=== PATIENT | female | born 1985 | race Caucasian/White ===

== ENCOUNTER 2020-06-30 09:31 | Outpatient (CLI) | payer OTHER, SELFPAY ==
--- NOTE | ~2020-06-30 | MR_ITS ---
EXAMINATION: MR pituitary wo/w con DATE: 06/30/2020 10:54 INDICATION: Hyperprolactinemia. TECHNIQUE: Magnetic resonance imaging (MRI) of the brain and brainstem was performed without and with 20 mL MultiHance intravenous contrast. Whole-brain sequences included sagittal T1-weighted FSE, axia l diffusion-weighted FS EPI, axial T2*-weighted GRE, axial T2-weighted FLAIR Propeller, and axial T2- weighted Propeller. Small tweqy-hl-xeya sequences included sagittal and coronal T1-weighted FSE cente red at the pituitary. Postcontrast sequences included small rxekz-st-tfug coronal T1-weighted FSE in a time course and sagittal T1-weighted FSE and whole-brain axial T1-weighted FSE. Apparent diffusion coefficient (ADC) maps were created. COMPARISON: None. FINDINGS: The pituitary is normal in size with height of 5 mm and concave superior margin. The infund ibulum is at midline. There is no intracranial hemorrhage, acute infarction, or abnormal intracranial mass lesion. There is a trace left mastoid effusion. The paranasal sinuses are clear. The orbits are normal. IMPRESSION: 1. Normal brain. Normal pituitary. Reviewed, dictated and finalized at location B. T FOREMAN
[2020-06-30 10:16] LABS: Estimated Glomerular Filt Rate > 60
== END 2020-06-30 09:32 | disposition home or self-care (01) ==
PROVIDERS: Visit Provider Nurse Practitioner Obstetrics & Gynecology
DX: E22.1 Hyperprolactinemia (principal)
CPT/HCPCS: 70553; A9577

== ENCOUNTER 2020-09-22 13:45 | Outpatient (CLI) | payer OTHER, SELFPAY ==
--- NOTE | ~2020-09-22 | US_ITS ---
EXAMINATION: US thyroid DATE: 09/22/2020 14:13 INDICATION: Nontoxic goiter. TECHNIQUE: Multiple ultrasound images of the thyroid were obtained. COMPARISON: None. FINDINGS: The right thyroid lobe measures 5.5 x 1.6 x 1.6 cm. The left thyroid lobe measures 5.0 x 2.0 x 1.5 c m. There is normal echotexture and echogenicity throughout the thyroid gland. No discrete nodules id entified. Normal vascular flow is present. IMPRESSION: 1. Normal thyroid. Reviewed, dictated and finalized at location A. LING ATTENDANT IMPRESSION: 1. Normal thyroid.
== END 2020-09-22 13:46 | disposition home or self-care (01) ==
PROVIDERS: Visit Provider Internal Medicine Endocrinology, Diabetes & Metabolism
DX: E04.9 Nontoxic goiter, unspecified (principal)
CPT/HCPCS: 76536

== ENCOUNTER 2020-11-30 10:03 | Emergency (ER) | payer OTHER, SELFPAY ==
[2020-11-30 10:14] VITALS: BP 134/83; PULSE 84; RESP 16; TEMP 36.5; O2SAT 98
--- NOTE | 2020-11-30 10:20 | PC.NURSE ---
in br to obtain ua spec.
--- NOTE | 2020-11-30 10:37 | ED.FEMALEGU ---
HPI - Female Genitourinary General Chief complaint: Urogenital-Female Stated complaint: UTI Time Seen by Provider: 11/30/20 10:37 Source: patient and RN notes reviewed Mode of arrival: ambulatory Limitations: no limitations History of Present Illness HPI Narrative: 35-year-old female presents with concern for possible urinary tract infection. She reports trouble holding urine, overnight incontinence, suprapubic cramping. Reports the last several days she has had nausea, vomiting, general body aches. She denies hematuria, flank pain. Denies upper respiratory symptoms such as cough or shortness of breath. She denies intervention. Denies abnormal vaginal discharge or bleeding. MD elicited complaint: UTI Related Data Home Medications Medication Instructions Recorded Confirmed cariprazine [Vraylar] mg 11/30/20 levothyroxine 11/30/20 lithium carbonate mg 11/30/20 metformin mg PO 11/30/20 pravastatin 11/30/20 sertraline mg 11/30/20 spironolactone 11/30/20 Allergies Allergy/AdvReac Type Severity Reaction Status Date / Time No Known Allergies Allergy Verified 11/30/20 10:11 Review of Systems Review of Systems: Narrative: CONSTITUTIONAL: Denies malaise, chills, sweats, or fever. ENT: Denies rhinorrhea, congestion, sinus pain, otalgia or sore throat. CARDIOVASCULAR: Denies chest pain, palpitations, or edema. RESPIRATORY: Denies cough or dyspnea. GASTROINTESTINAL: Denies abdominal pain, diarrhea. Reports nausea, vomiting, GENITOURINARY: Reports dysuria incontinence, urgency, suprapubic crampy. Denies hematuria, abnormal vaginal discharge or bleeding SKIN: Denies vaginal rash or itching. MUSCULOSKELETAL: Denies back pain. Reports myalgia. NEUROLOGIC: Denies headache. All systems reviewed & are unremarkable except as noted in HPI and below PMFSH Comments At time of signature, agree with nursing past medical, surgical, social and family history. There is no relevant family history pertinent to the presenting complaint Exam Narrative: Exam Narrative: GENERAL: Well-appearing, well-nourished, and in no acute distress. HEAD: Normocephalic. EYES: PERRLA, conjunctivae clear. NECK: Supple. No lymphadenopathy CHEST: Clear to auscultation. No respiratory distress. HEART: Regular rate and rhythm. ABDOMEN: Soft, mild right lower quadrant tenderness upon palpation, nondistended, normal active bowel sounds, no palpable or pulsatile masses, no guarding. No CVA tenderness SKIN: Warm, dry, no rash. NEURO: Alert and oriented x3. PSYCH: Normal mood and affect Course Course Emergency Course: Patient is aware of diagnosis, understands and agrees to treatment plan. Anticipatory guidance given. Patient agrees to follow-up as directed and is aware of reasons to seek care at the emergency department. Portions of this record may have been created with voice recognition software Vital Signs Vital signs: Vital Signs Temperature 97.7 F 11/30/20 10:14 Pulse Rate 84 11/30/20 10:14 Respiratory Rate 16 11/30/20 10:14 Blood Pressure 134/83 11/30/20 10:14 Pulse Oximetry 98 11/30/20 10:14 Temperature 97.7 F 11/30/20 10:14 Pulse Rate 84 11/30/20 10:14 Respiratory Rate 16 11/30/20 10:14 Blood Pressure 134/83 11/30/20 10:14 Pulse Oximetry 98 11/30/20 10:14 Reviewed. MDM - Female Genitourinary MDM Narrative Medical decision making narrative: Exam findings and UA show no acute concerns or changes; patient is non-toxic appearing and is in no distress. Patient is appropriate for outpatient treatment and follow-up. Differential Diagnosis Differential diagnosis: Likely urinary tract infection, cystitis and other (Pyelonephritis) Lab Data Labs: Urine Glucose Negative Reference Range: Negative Urine Bilirubin Negative Reference Range: Negative Urine Ketone
== END 2020-11-30 10:50 | disposition home or self-care (01) ==
PROVIDERS: Emergency Provider Nurse Practitioner
DX: N39.0 Urinary tract infection, site not specified (principal); E78.00 Pure hypercholesterolemia, unspecified; Z98.84 Bariatric surgery status; E03.9 Hypothyroidism, unspecified; E28.2 Polycystic ovarian syndrome
CPT/HCPCS: 81003; 87077; 87086; 87088; 87186; 99213; G0463

== ENCOUNTER 2021-11-28 10:36 | Outpatient (CLI) | payer OTHER, SELFPAY ==
--- NOTE | 2021-11-28 | ECG_ITS ---
Measurements Intervals [place] Rate: 84 P: 50 MO: 152 QRS: -1 QRSD: 104 T: 23 QT: 384 QTc: 455 Interpretive Statements SINUS RHYTHM DELAYED PRECORDIAL R/S TRANSITION BORDERLINE T WAVE ABNORMALITY- ANT/INF LEADS BASELINE WANDER- V1, V4 BORDERLINE ECG Electronically Signed On 11-28-2021 12:57:33 CDT by Chinedu Velazquez D.O.
--- NOTE | 2021-11-28 13:45 | WPDPFTINT ---
PFT Procedure Performed PFT Procedure Performed Plethysmography (Lung Vol) Diffusing Cap (DLCO) Flow Vol Loop Spirometry w/o Bronchodil PFT Interpretation This is a pulmonary function test with spirometry, plethysmography and diffusing capacity. The test was performed and results interpreted in accordance with the 2019 and 2005 ATS/ERS Task Force guidelines respectively using the Global Lung Function Initiative-2012 reference equations. Patient demonstrated good effort and cooperation. Reproducibility criteria were met. The quality of the spirometry maneuver was Grade A. Findings: Spirometry: The contour the inspiratory and expiratory flow tracing are normal. The FVC is 3.45 L, 92% predicted. The FEV1 is 2.70 L, 88% predicted. The FEV1: FVC ratio 78%. Plethysmography: The total lung capacity is 4.80 L, 94% predicted. The functional residual capacity is 1.75 L, 62% predicted. The residual volume is 1.35 L, 87% predicted. Diffusing capacity: The diffusing capacity unadjusted for hemoglobin and carboxyhemoglobin is 22.6, 94% predicted. The diffusion capacity adjusted for alveolar volume is 5.02 L, 105% predicted. Impression: The spirometry is normal without evidence of an obstructive abnormality. The lung volumes are normal. The diffusing capacity is normal. There are no prior studies for comparison
== END 2021-11-28 10:37 | disposition home or self-care (01) ==
PROVIDERS: Referring Provider Internal Medicine; Visit Provider Nurse Practitioner Adult Health
DX: R06.00 Dyspnea, unspecified (principal)
CPT/HCPCS: 93005; 94375; 94726; 94729

== ENCOUNTER 2021-11-29 14:16 | Outpatient (CLI) | payer OTHER, SELFPAY ==
--- NOTE | ~2021-11-29 | XR_ITS ---
XR chest 2V DATE: 11/29/2021 14:50 INDICATION: Dyspnea on exertion. Preoperative evaluation for bariatric surgery TECHNIQUE: PA and lateral views COMPARISON: None FINDINGS: Normal heart size. No hilar or mediastinal enlargement. No pulmonary infiltrate or consolid ation, pleural effusion or pulmonary vascular congestion or pneumothorax. IMPRESSION: No active cardiopulmonary disease Reviewed, dictated and finalized at location B.
== END 2021-11-29 14:17 | disposition home or self-care (01) ==
LOC: ANHIMG 14:18
PROVIDERS: PCP Internal Medicine; Visit Provider Internal Medicine
DX: R06.00 Dyspnea, unspecified (principal)
CPT/HCPCS: 71046

== ENCOUNTER 2023-09-21 13:29 | Outpatient (CLI) | payer BC, SELFPAY ==
--- NOTE | 2023-09-21 13:36 | ECG_ITS ---
Measurements Intervals [place] Rate: 66 P: 38 NH: 193 QRS: -4 QRSD: 102 T: 15 QT: 404 QTc: 424 Interpretive Statements SINUS RHYTHM DELAYED PRECORDIAL R/S TRANSITION LOW QRS VOLTAGE IN PRECORDIAL LEADS BORDERLINE T WAVE ABNORMALITY- ANT/INF LEADS BASELINE ARTIFACT- I, II, AVR BORDERLINE ECG COMPARED TO ECG 11/28/2021 12:02:39 NO SIGNIFICANT CHANGES Electronically Signed On 09-21-2023 13:59:36 PROGRESSIVE CARE NURSE by Chinedu Velazquez D.O.
[2023-09-21 13:58] LABS: Hematocrit 42.3 % (37.0-47.0); Hemoglobin 13.7 g/dL (12.0-15.0)
[2023-09-21 14:22] LABS: Anion Gap 6 mmol/L (8-16); Blood Urea Nitrogen 16 mg/dL (7-17); Calcium 9.7 mg/dL (8.4-10.2); Carbon Dioxide 27 mmol/L (22-30); Chloride 104 mmol/L (98-107); Estimated Glomerular Filt Rate > 60; Glucose 94 mg/dL (65-110); Potassium 4.2 mmol/L (3.4-5.0); Sodium 137 mmol/L (137-145)
== END 2023-09-21 13:30 | disposition home or self-care (01) ==
LOC: ANHSURGERY 13:32
PROVIDERS: Anesthesiology; PCP Internal Medicine; Visit Provider Obstetrics & Gynecology
DX: Z01.818 Encounter for other preprocedural examination (principal); D64.9 Anemia, unspecified; Z79.899 Other long term (current) drug therapy; E78.00 Pure hypercholesterolemia, unspecified; E11.9 Type 2 diabetes mellitus without complications
CPT/HCPCS: 36415; 80048; 80178; 85014; 85018; 93005

== ENCOUNTER 2023-09-26 00:53 | Day surgery (SDC) | payer BC, SELFPAY ==
--- NOTE | 2023-09-20 17:58 | PC.NURSE ---
Report to the Outpatient Waiting Room, entrance under the green pavilion located off [facility], at time 0600 on date 09/26/23. Planned Procedure Time: 0730. Time changes happen often and if your time is changed the preop area will call you the afternoon before. - You and your visitor will be asked to self-screen and do not enter if you have any COVID symptoms. - A mask is optional within the hospital at this time. Patients may have clear liquids (water, carbonated beverages, clear teas, apple juice) until 3 hours prior to surgery with a maximum of 20 ounces. 0430 - No food from midnight until time of surgery - Infants may have breast milk until 4 hours before surgery, formula 6 hours prior to surgery. - Children will be allowed to drink immediately following surgery. If applicable, please bring a bottle or sippy cup to assist with drinking. Juice, water, soda, and popsicles are readily available. For infants on formula, please bring formula the day of surgery. Pacifiers are allowed. Take the following medications with a SIP of water the morning of surgery: LITHIUM, LEVOTHYROXINE, CONTROL DO NOT STOP ANY OF YOUR OTHER PRESCRIPTION MEDICATIONS PRIOR TO SURGERY ?EXCEPT THE FOLLOWING Medications to discontinue per physician VITAMIN AND SUPPLEMENTS (09/23/23 LAST DOSE) Please no make-up, nail [place], hairspray, perfume, deodorant, or body powder the day of surgery. No jewelry (including any body piercings) or valuables the day of surgery, leave them at home. Please take a shower or bath the night before, or the morning of, surgery with an antibacterial soap. Wear comfortable, loose fitting clothing. Children are encouraged to wear pajamas. - Jewelry must be removed prior to entering the operating room. Rings and piercings that are not removed may be cut off. - The hospital will not accept responsibility for valuables. - Please leave all valuables, including medications, at home the day of surgery. If you are going home after surgery, a licensed diesel truck driver must drive you home. - NO public transportation without another adult if you receive anesthesia. - We recommend that an adult stay with you for 24 hours following discharge. - We also recommend that you do not drive, make important decision, drink alcoholic beverages, or take any drugs that were not prescribed by your health care provider for at least 24 hours after your discharge time. For Pediatric surgeries, we recommend two adults accompany the child home. Follow any additional instructions given to you from your surgeon. If you or anyone in your household have experienced Covid symptoms in the past week, please notify your surgeon or the nurse liaison at the phone number below for possible testing. Telephone instructions given to Patient- Juana Rodriguez and asked if any additional questions and then verbalized understanding. Patient advised to call surgeon office or pre surgery nurse liaison [phone] if any additional questions.
[2023-09-20 18:06] VITALS: BMI 41.0
--- NOTE | 2023-09-25 14:13 | P.PNAN_ITS ---
Anes - Initial Pre Proc Eval Procedure: Operation Date: 09/26/23 07:30 Proposed Procedures p Diagnostic Laparoscopy - Maryam Guerrero MD Date/Time: 09/25/23 14:13 Surgeon: Maryam Guerrero MD Pre Op Diagnosis: pelvic mass Patient Data Age: 38 Gender: F Height: 1.64 m Weight: 110.9 kg Allergies Allergy/AdvReac Type Severity Reaction Status Date / Time No Known Allergies Allergy Verified 09/20/23 17:37 Home Medications Medication Instructions Recorded Confirmed Type cariprazine 3 mg capsule (Vraylar) 6 mg PO QPM 11/30/20 09/20/23 History levothyroxine 75 mcg tablet 125 mcg PO DAILY 11/30/20 09/20/23 History lithium carbonate 600 mg capsule 600 mg PO BID 11/30/20 09/20/23 History metformin 500 mg tablet,extended 500 mg PO HS 11/30/20 09/20/23 History release 24 hr pravastatin 20 mg tablet 20 mg PO DAILY 11/30/20 09/20/23 History Adults Multivitamin 1 tab-cap PO HS 09/20/23 09/20/23 History Allergy Relief (loratadine) 1 tab-cap PO DAILY 09/20/23 09/20/23 History atomoxetine 25 mg capsule 60 mg PO DAILY 09/20/23 09/20/23 History calcium citrate 1 tab-cap PO BID 09/20/23 09/20/23 History drospirenone 3 mg-estetrol 14.2 mg 1 tablet PO DAILY 09/20/23 09/20/23 History (28) tablet (Nextstellis) ferrous sulfate 325 mg (65 mg 325 mg PO QPM 09/20/23 09/20/23 History iron) tablet lithium carbonate 300 mg capsule 300 mg PO HS 09/20/23 09/20/23 History Patient hx anesthesia problems: none Family hx anesthesia problems: none Results Review: All pre-operative results and documents have been reviewed as part of the pre- operative evaluation. [facility] Past Medical History Medical History (Updated 09/25/23 @ 14:14 by Robson Newton DO) Anxiety Asthma Bipolar disorder Hyperlipidemia Hypothyroidism PTSD (post-traumatic stress disorder) Surgical History Surgical History (Updated 09/25/23 @ 14:14 by Robson Newton DO) History of History of cholecystectomy History of gastric bypass History of tubal ligation Social History Social History Smoking packs per day: 1 Smoking cigarettes per day: 20.0 Years smoked: 20 Smoking pack-years: 20.00 Smoking status: Former smoker Tobacco type: cigarettes Substance use type: marijuana Other substance usage details: daily in the evenings Spiritual care concerns: No Anes - Eval Final PreProcedure Day of Procedure 09/25/23 14:13 Patient weight: morbidly obese Heart: regular rate and rhythm Lungs: clear to auscultation Airway: Mallampati scale class II Neurological: alert and oriented Last oral intake: >/= 8 hours ASA classification: III Emergent: no Anesthetic plan: proceed Anesthesia type and monitoring: general ETT and standard monitoring Results Review: All pre-operative results and documents have been reviewed as part of the pre- operative evaluation. Informed Consent: The patient's anesthetic plan and its attendant risks and benefits were discussed with the patient/family/POA. Questions were solicited and answers provided to the satisfaction of the patient/family/POA.
[2023-09-26] VITALS (12 sets, daily range): BP systolic 123–148; BP diastolic 59–83; PULSE 60–79; RESP 10–19; TEMP 36.3–36.7; O2SAT 92–100; BMI 41.1
[2023-09-26 06:27] LABS: Glucose Point of Care 106 mg/dl (65-105)
[2023-09-26] MEDS: KETOROLAC 15 MG/ML VIAL (*BKC) IV PUSH (06:46)
[2023-09-26] MEDS: ACETAMINOPHEN 500 MG TABLET 1000 MG PO (06:46)
[2023-09-26] MEDS: LACTATED RINGERS 1,000 ML 30 ML IV CONT ×2 (06:48→09:30)
[2023-09-26] MEDS: SCOPOLAMINE 1 MG PATCH 1 PATCH TRANSDERM (06:57)
--- NOTE | 2023-09-26 07:26 | WPDHPUPDATE1 ---
History and Physical Update Update Date/Time: 09/26/23 07:26 History and Physical has been reviewed, including an updated exam of the patient. There are NO changes in the patient's condition. Risks, benefits, and alternatives have been discussed and questions answered. Patient agrees to proceed with procedure.
--- NOTE | 2023-09-26 08:45 | W.PM.PROC2 ---
Procedure Note - Detailed Date of Procedure 09/26/23 Pre-op Diagnosis pelvic mass Post-op Diagnosis Other ( paratubal cyst torsion) Procedure Performed resection of paratubal cyst Surgeon Maryam Guerrero MD Anesthesia General Indications Pelvic pain Findings paratubal cyst torsion, adhesions between omentum and anterior abdominal, adhesions between uterus and anterior pelvis, normal-appearing tubes and ovaries, status post tubal ligation. Description of Procedure The patient was taken to the operating room. She was prepped and draped in the dorsal lithotomy position after induction general anesthesia. A 5 mm incision was made with a scalpel on the abdominal skin in the left upper quadrant of the abdomen. A 5 mm trocar was inserted into the intra-abdominal cavity under direct visualization the scope. In the same fashion a 11 mm left lower quadrant trocar was inserted and a 5 mm infraumbilical trocar was inserted. Paratubal cyst torsion was resected. The stalk was cauterized transected. The paratubal cyst was placed in a bag and taken out the left lower quadrant trocar site. The pelvis was irrigated. The pneumoperitoneum was reduced. The trocars were removed. Skin was closed with subcuticular 4 micro. The patient's incisions were covered with Dermabond. She was taken recovery room in stable condition. Sponge lap and needle counts were correct x2. Pathology Yes Complications No immediate complications Condition Stable Disposition Same day
[2023-09-26 08:47] LABS: Glucose Point of Care 93 mg/dl (65-105)
[2023-09-26] MEDS: ONDANSETRON INJ 4 MG/2 ML VIAL IV PUSH (09:22)
[2023-09-26] MEDS: diphenhydrAMINE HCl INJ 50 MG/ML VIAL 25 MG IV PUSH ×2 (09:35→09:51)
[2023-09-26] MEDS: fentaNYL CITRATE INJ (*CRX) 100 MCG/2 ML VIAL 25 MCG IV PUSH (09:56)
[2023-09-26] MEDS: oxyCODONE HCL (*CRX) 5 MG TAB IR PO (10:30)
== END 2023-09-26 10:55 | disposition home or self-care (01) ==
PROVIDERS: PCP Internal Medicine; Visit Provider Obstetrics & Gynecology
PROC: (CPT 49320; principal; 2023-09-26 07:30)
DX: N83.8 Other noninflammatory disorders of ovary, fallopian tube and broad ligament (principal); E78.5 Hyperlipidemia, unspecified; E03.9 Hypothyroidism, unspecified; F31.9 Bipolar disorder, unspecified; F41.9 Anxiety disorder, unspecified; F43.10 Post-traumatic stress disorder, unspecified; Z98.84 Bariatric surgery status; Z87.891 Personal history of nicotine dependence; F12.90 Cannabis use, unspecified, uncomplicated; E66.01 Morbid (severe) obesity due to excess calories; Z68.41 Body mass index [BMI] 40.0-44.9, adult; Z79.84 Long term (current) use of oral hypoglycemic drugs
CPT/HCPCS: 58662; 82948; 88305; A9270; J1100; J1170; J1200; J1885; J2250; J2405; J2704; J3010; J7030; J7120

== ENCOUNTER 2025-03-20 09:09 | Emergency (ER) | payer BC, SELFPAY ==
--- NOTE | ~2025-03-20 | CT_ITS ---
EXAMINATION: CT elbow RT wo con DATE: 03/20/2025 12:55 INDICATION: Right elbow fracture dislocation TECHNIQUE: High resolution computed tomography (CT) of the right elbow was performed without intravenous contrast. Additional sagittal and coronal reconstructions were performed. Automated exposure control and iterative reconstruction technique were employed. The dose-length product was 373.99 mGy-cm. COMPARISON: Radiographs dated 03/20/2025 FINDINGS: Comminuted intra-articular fracture at the proximal head of the right radius. There is volar impaction with approximately 25 degree anterior angulation of the more distal radius relative to the radial head fragments. There is a nondisplaced fracture line extending to the proximal articular surface. A c rescentic fragment comprising approximately one third of the articular surface of the radial head is displaced 3 cm distally. There are a few additional tiny fracture fragments scattered throughout the recess of the elbow joint space. The previously posteriorly dislocated and subsequently reduced ulnotrochlear articulation remains in normal alignment. No evident fracture of the distal humerus and proximal ulna. Persistent extensive edema surrounding the elbow. There are few tiny foci of gas along the medial aspect of the elbow and proximal forearm which suggests a possible skin laceration and potential for an open/compound fracture. Alternatively this could represent residual vacuum phenomena occurring at the time of trauma. IMPRESSION: 1. Comminuted intra-articular fracture of the right radial head with 3 cm distal displacement of a fragment comprising approximately one third of the articular surface area. Although there is volar impaction with 25 degrees angulation of the nondisplaced radial head fragments, the articular surface of the radial head is now appropriately centered over the articular surface of the capitellum. Reviewed, dictated and finalized at location A. IMPRESSION: 1. Comminuted intra-articular fracture of the right radial head with 3 cm dista l displacement of a fragment comprising approximately one third of the articula r surface area. Although there is volar impaction with 25 degrees angulation of the nondisplaced radial head fragments, the articular surface of the radial he ad is now appropriately centered over the articular surface of the capitellum.
--- NOTE | ~2025-03-20 | XR_ITS ---
EXAMINATION: XR elbow RT min 3V DATE: 03/20/2025 10:10 INDICATION: Postreduction. TECHNIQUE: 3 images of the right elbow were obtained. COMPARISON: Right elbow x-ray 03/20/2025 FINDINGS: Large joint effusion. Soft tissue swelling. Redemonstration of the avulsion fractures about the right elbow. Minimally displaced fracture of the radial neck. Improved alignment of the supracondylar humerus. However, the supracondylar humerus is not in anatomic alignment IMPRESSION: 1.Improved alignment of the supracondylar humerus. However, the supracondylar humerus is not in anatomic alignment 2.Redemonstration of the avulsion fractures about the right elbow. 3.Minimally displaced fracture of the radial neck. Reviewed, dictated and finalized at location Q. IMPRESSION: 1.Improved alignment of the supracondylar humerus. However, the supracondylar h umerus is not in anatomic alignment 2.Redemonstration of the avulsion fractures about the right elbow. 3.Minimally displaced fracture of the radial neck.
--- NOTE | ~2025-03-20 | XR_ITS ---
EXAMINATION: XR elbow RT min 3V, 03/20/2025 9:20 CDT HISTORY: fall down stairs, deformity COMPARISON: No comparisons available. Findings: The supracondylar humerus is dislocated anteriorly with avulsion fractures noted. Large joint effusion. Diffuse soft tissue swelling. Impression: Fracture dislocation detailed above Reviewed, dictated and finalized at location A. Impression: Fracture dislocation detailed above
[2025-03-20 09:09] VITALS: BP 134/66; PULSE 49; RESP 18; TEMP 37; O2SAT 100
[2025-03-20] MEDS: ONDANSETRON INJ 4 MG/2 ML VIAL IV PUSH (09:24)
[2025-03-20] MEDS: HYDROmorphone HCL INJ (*CRX) 1 MG/ML SYR 0.5 MG IV PUSH ×3 (09:24→13:47)
--- OUTSIDE RECORDS SUMMARY | 2025-03-20 09:38 | XMS_ITS | Encounter Summary ---
Author Organization [facility] Address [address] [place] [address] Phone Care Team Providers Care It Systems Analyst Name Role Phone Unknown, Notinfile Primary Care Provider Unavail able Rubio Burciaga MD Primary Care Provider [phone] Encounter Details Date Type Department Care Team (Latest Contact Info) Description 10/28/2021 Orders Only [facility] Scanning, Provider Social History Tobacco Use Types Packs/Day Years Used Date Smoking Tobacco: Former Cigarettes 1 15 AUDIT-C Answer Date Recorded Q1: How often do you have a drink containing alc ohol? 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 Gender Identity Female 01/25/2021 11:10 AM CDT Sexual Orientation Straight 01/25/2021 11 :10 AM CDT documented as of this encounter Plan of Treatment Not on file documented as of this encounter Procedures Procedure Name Priority Date/Time Associated Diagnosis Comments SCAN - LABS 10/28/2021 documented in this encounter Results * SCAN - LABS (10/28/2021) us Provider Scanning Final Result documented in this encounter Visit Diagnoses Not on filedocumented in this encounter Additional Health Concerns Infection Onset Date Last Indicated Resolved Time COVID: Suspected 06/16/2024 06/16/2024 06/16/2024 8:32 AM GRANITE WORKER documented as of this encounter Care Teams It Systems Analyst Relationship Specialty Start Date End Date Unknown, Notinfile PCP - General 07/21/20 11/15/21 Rubio Burciaga MD [address] [facility] [place] [address] PCP - General Internal Medicine 11/16/21 documented as of this encounter
--- OUTSIDE RECORDS SUMMARY | 2025-03-20 09:38 | XMS_ITS | Clinical Summary ---
Author Organization [facility] Address [address] [place] [id number] Care Team Providers Care Diving Board Assembler Name Role Phone Rubio Burciaga MD Primary Care Provider [phone] Allergies Active Allergy Reactions Criticality Noted Date Comments Escitalopram Anxiety High 03/13/2024 Metformin Diarrhea Low 08/13/2021 Abdominal pain, intolerance at higher doses. No issues with 500mg Medications pravastatin (PRAVACHOL) 20 mg tablet Take 1 tablet (20 mg total) by mouth instructor psychiatric aide before breakfast 1 Active levothyroxine (SYNTHROID) 125 mcg tablet Take 1 tablet (125 mcg total) by mouth every morning 2 Active melatonin 10 mg capsule Take 20 mg by mouth nightly Active vitamin D3/vitamin K2, MK4, (K2 PLUS D3 ORAL) Take by mouth nightly K2- 90mg and 125 d3 at hs Active UNABLE TO FIND Take 1 each by mouth nightly Med Name: magnesium l-threonate Active albuterol (PROAIR RESPICLICK) 90 mcg/actuation inhaler Inhale 2 puffs every 6 (six) hours as needed for wheezing Active loratadine (CLARITIN) 10 mg tablet Take 1 tablet (10 mg total) by mouth instructor psychiatric aide before breakfast Active multivit lkvgitdy-jbpx-S A-calcium (THERA-M) 9 mg iron-400 mcg tabletIndicatio ns:Vitamin Deficiency Prevention Take 1 tablet by mouth 2 (two) times a day 30 tablet 11 3 Active drospirenone-es tetrol (Nextstellis) 3 mg- 14.2 mg (28) tablet Take by mouth daily Active QUEtiapine (SEROquel) 25 mg tablet Take 1 tablet (25 mg total) by mouth nightly 5 Active metFORMIN XR (GLUCOPHAGE XR) 500 mg 24 hr tablet Take 1 tablet (500 mg total) by mouth daily with dinner 5 Active venlafaxine XR (EFFEXOR-XR) 150 mg 24 hr capsule Take 1 capsule (150 mg total) by mouth daily 5 Active ARIPiprazole (ABILIFY MAINTENA) 400 mg IM injection Inject 400 mg into the muscle as instructed every 30 (thirty) days 5 Active clonazePAM (KlonoPIN) 0.5 mg tablet Take 1 tablet (0.5 mg total) by mouth 2 (two) times a day as needed 5 Active dexmethylphenid ate (FOCALIN) 5 mg tablet Take 1 tablet (5 mg total) by mouth 2 (two) times a day 5 Active lamoTRIgine (LaMICtal) 100 mg tablet Take 1 tablet (100 mg total) by mouth daily 5 Active ascorbic acid-vitamin E-biotin 7.5-7.5-1,250 mg-unit-mcg tablet,chewable Take by mouth daily Active vit 46-rytn-titpe-d quiñones 27mg iron- 800 mcg-250 mg capsule Take by mouth daily Active Active Problems Problem Noted Date Diagnosed Date Work-related stress 04/29/2024 Assessment & Plan (04/29/2024 11:10 AM CDT): Acute, persistent, worry about returning to work. Discussed at length patient today. Plan in place for with therapist tomorrow. Supportive counseling provided. Continue to monitor. Other insomnia 04/29/2024 Assessment & Plan (04/29/2024 11:11 AM CDT): Acute on chronic, persistent symptoms. Focus on sleep hygiene. Improving sleep hygiene is estrada to promoting better quality sleep. A few tips are noted below: Stick to a consistent sleep schedule by going to bed and waking up at the same time every day, even on weekends. Create a relaxing bedtime routine to signal to your body that it's time to wind down. Make sure the sleep environment is conducive to rest - keep the room dark, quiet, and at a comfortable temperature. Avoid stimulants like caffeine, nicotine, and electronics close to bedtime. Get regular exercise during the day, but avoid vigorous exercise close to bedtime. Limit exposure to screens and bright lights in the evening, as they can interfere with your body's natural sleep-wake cycle. Avoid heavy meals, alcohol, and large amounts of liquids before bedtime. Practice relaxation techniques like deep breathing, meditation, or gentle stretching to calm the mind and body before sleep. Changes to management noted as follows: Increase trazodone as discussed today. Monitor at interval. Morbid (severe) obesity due to excess calories 0 08/10/2022 Attention and concentration deficit 08/10/2022 Autoimmune thyroiditis 08/10/2022 Major depressive disorder 08/10/2022 Midline cystocele 08/10/2022 Pre-operative cardiovascular examination 022 Hypercalcemia 11/28/2021 Prediabetes 08/30/2021 Assessment & Plan (06/30/2022 1:07 PM MANAGER FACILITY): Reviewed most recent labs available. Continue low-carb (<150 g/day), low- glycemic diet. Continue dulaglutide -- consider increasing pending timing of surgery.. Discussed that this will be stopped, at least temporarily, at the time of surgery. Assessment & Plan (03/09/2022 1:24 PM CDT): Upcoming appt and labs with endocrine. Continue low-carb (<150 g/day), low- glycemic diet. Continue metformin. Recommend maximizing dulaglutide. Mixed hyperlipidemia 08/30/2021 Metabolic and nutritional disorder 07/06/2021 Overview (08/13/2021): Semaglutide denied by insurance; did not tolerate metformin Assessment & Plan (09/06/2021 5:22 PM MANAGER FACILITY): Continue low-carb (<150 g/day), low-glycemic diet. Continue metformin as tolerated. Assessment & Plan (08/13/2021 6:51 PM MANAGER FACILITY): Continue low-carb (<150 g/day), low-glycemic diet. Assessment & Plan (07/06/2021 10:54 PM MANAGER FACILITY): Continue low-carb (<150 g/day), low-glycemic diet. Continue metformin. Assessment & Plan (07/06/2021 10:45 PM MANAGER FACILITY): Continue low-carb (<150 g/day), low-glycemic diet. Titrate up on metformin. Encounter for weight management 02/01/2021 Assessment & Plan (06/30/2022 1:05 PM MANAGER FACILITY): Reviewed calorie restriction based on BMR as previously detailed. Reviewed recommendation/goal of >/= 150 minutes/week moderate-intensity aerobic exercise. Asked to keep detailed food diary for at least 1 week and bring to next visit and/or continue tracking on phone. Assessment & Plan (03/09/2022 1:19 PM CDT): Reviewed calorie restriction based on BMR as previously detailed. Reviewed recommendation/goal of >/= 150 minutes/week moderate-intensity aerobic exercise. Asked to keep detailed food diary for at least 1 week and bring to next visit and/or continue tracking on phone. Assessment & Plan (09/06/2021 5:22 PM MANAGER FACILITY): Reviewed calorie restriction based on BMR as previously detailed. Reviewed recommendation/goal of >/= 150 minutes/week moderate-intensity aerobic exercise. Assessment & Plan (08/13/2021 6:46 PM MANAGER FACILITY): Reviewed calorie restriction based on BMR as previously detailed. Reviewed recommendation/goal of >/= 150 minutes/week moderate-intensity aerobic exercise. Have not recommended keeping a food diary/tracking on phone in setting of disordered eating. Assessment & Plan (07/06/2021 10:53 PM MANAGER FACILITY): Reviewed calorie restriction based on BMR as previously detailed. Reviewed recommendation/goal of >/= 150 minutes/week moderate-intensity aerobic exercise. Have not recommended keeping a food diary/tracking on phone in setting of disordered eating. Assessment & Plan (07/06/2021 10:41 PM MANAGER FACILITY): Reviewed calorie restriction based on BMR as previously detailed. Reviewed recommendation/goal of >/= 150 minutes/week moderate-intensity aerobic exercise. Have not recommended keeping a food diary/tracking on phone in setting of disordered eating. Assessment & Plan (07/06/2021 10:31 PM MANAGER FACILITY): Reviewed calorie restriction based on BMR as previously detailed. Reviewed recommendation/goal of >/= 150 minutes/week moderate-intensity aerobic exercise. Assessment & Plan (02/01/2021 1:12 PM CDT): Discussed that significant health benefits/risk reduction may be seen with even 5% weight loss. Discussed that weight loss will require calorie deficit. Calculated basal metabolic rate and estimated total energy expenditure; discussed 500-1000 kcal/day deficit to lose 1-2 lb per week. Have not recommended keeping a food diary/tracking on phone in setting of disordered eating. Discussed relatively small, although significant, role of exercise in weight loss; greater importance in weight maintenance as shown in Look Ahead study and National Weight Control Registry. Discussed recommendation/goal for 150 minutes per week moderate-intensity aerobic exercise. Obstructive sleep apnea 02/01/2021 Assessment & Plan (02/01/2021 11:20 AM CDT): Discussed comorbidities associated with sleep apnea, including effects on weight, and stressed importance of adequate treatment if present. Continue CPAP. PCOS (polycystic ovarian syndrome) 02/01/2021 Assessment & Plan (02/01/2021 1:22 PM CDT): Labs. Reviewed recent labs -- A1c 5.5 on 01/05/2021.Discussed insulin resistance including effect on weight and risk for progression to diabetes. Recommended low-carb, low-glycemic diet; choose whole grains and avoid more highly processed carbohydrates. Discussed potential benefits of this w/r/t gut microbiome. Referred to ADA and [employer] websites for additional information on topics including glycemic index/carbohydrate choices, protein sources. Reviewed importance of adequate protein intake of 1-1.2 g/kg IBW/day. Can try reducing metformin to once a day to see if side effects improve. Discussed options and will add GLP-1 analog. Discussed risks, benefits, alternatives, potential side effects. No personal or family history of MTC or MEN2. Reviewed dosing/titration. Referred to websites for additional instructions/info/video. Start semaglutide. Discussed potential benefit of metformin w/r/t medication-induced weight gain. Disordered eating 02/01/2021 Assessment & Plan (09/06/2021 5:25 PM MANAGER FACILITY): Message out to psychiatry IDENTIFICATION AND RECORDS COMMANDER re starting topiramate vs zonisamide. Continue with therapist. Assessment & Plan (08/13/2021 6:47 PM MANAGER FACILITY): Continue with therapist. Consider topiramate or zonisamide. Assessment & Plan (07/06/2021 10:52 PM MANAGER FACILITY): Continue with therapist. Consider topiramate or zonisamide -- will discuss with psychiatrist. Assessment & Plan (07/06/2021 10:34 PM MANAGER FACILITY): Continue with therapist. Assessment & Plan (02/01/2021 1:13 PM CDT): Given QEWP to complete. She currently sees a therapist. Class 3 severe obesity due t o excess calories with serious comorbidity and body mass index (BMI) of 50.0 to 59.9 in adult 02/01/2021 Assessment & Plan (06/30/2022 1:07 PM MANAGER FACILITY): Obesity is unchanged.. Plan: Diet interventions: as noted.., Regular aerobic exercise program discussed. and Medication as prescribed. Pursuing bariatric surgery. Consider resuming zonisamide pending timing of surgery. Assessment & Plan (03/09/2022 1:25 PM CDT): Obesity is improving. Diet interventions: as noted. Regular aerobic exercise program discussed. Pharmacotherapy as ordered. Pursuing bariatric surgery. Assessment & Plan (09/06/2021 5:26 PM MANAGER FACILITY): Obesity is unchanged. Diet interventions: as noted. Regular aerobic exercise program discussed. Pursuing bariatric surgery. Assessment & Plan (08/13/2021 6:52 PM MANAGER FACILITY): Obesity is unchanged. Diet interventions: as noted. Regular aerobic exercise program discussed. Pursuing bariatric surgery. Assessment & Plan (07/06/2021 10:55 PM MANAGER FACILITY): Obesity is unchanged. Diet interventions: as noted. Regular aerobic exercise program discussed. Pharmacotherapy as ordered. Assessment & Plan (07/06/2021 10:46 PM MANAGER FACILITY): Obesity is worsening. Diet interventions: as noted. Regular aerobic exercise program discussed. Pharmacotherapy as ordered. Assessment & Plan (07/06/2021 10:35 PM MANAGER FACILITY): Obesity is unchanged. Diet interventions: as noted. Regular aerobic exercise program discussed. Pharmacotherapy as ordered. Assessment & Plan (02/01/2021 1:21 PM CDT): Obesity is unchanged. General weight loss/lifestyle modification strategies discussed (elicit support from others; identify saboteurs; non-food rewards, etc). Behavioral treatment: continue with thewrapist; discussed rolew of CBT in disordered eating.. Diet interventions: as noted. Informal exercise measures discussed, e.g. taking stairs instead of elevator. Regular aerobic exercise program discussed. Pharmacotherapy as ordered. Provided information for attending bariatric surgery seminar. She is a good candidate for surgery. Hypothyroidism 09/06/2020 Assessment & Plan (02/01/2021 1:15 PM CDT): Reviewed recent endocrine notes, labs. TSH 3.6 01/05/2021. Bipolar disorder 09/06/2020 Assessment & Plan (10/19/2024 10:52 PM CDT): Subacute, persistent. Medication changes as per outpatient psychiatric nurse practitioner. Admitted to the intensive outpatient treatment. Assessment & Plan (04/29/2024 11:09 AM CDT): Subacute, persistent, improving. Denies SI. Continue current meds for now. Assessment & Plan (04/27/2024 10:47 PM CDT): Subacute, persistent, improving. Denies SI. Continue current meds for now. Assessment & Plan (04/13/2024 10:36 PM CDT): Acute, persistent. Denies SI. Continue current meds for now. Assessment & Plan (04/03/2024 5:50 PM CDT): Subacute, persistent, improving. Denies SI. Continue current meds for now. Assessment & Plan (03/27/2024 6:31 PM CDT): Subacute, persistent, but slight interval improvement. Denies SI. Generalized anxiety disorder 08/23/2020 Assessment & Plan (10/19/2024 10:54 PM CDT): Chronic, persistent. Continue current medication regimen from outpatient setting. Management per outpatient psychiatric nurse practitioner Assessment & Plan (04/28/2024 6:52 PM CDT): Chronic, persistent. Propranolol 20 mg BID prn. Continue to monitor at interval. Assessment & Plan (03/27/2024 5:37 PM CDT): Chronic, persistent. No medication changes at this time. Continue to monitor at interval. Asthma Encounters Date Type Department Care Team Description 02/25/2025 9:00 AM CDT Therapy [address] [id number] Major depressive disorder, remission status unspecified, unspecified whether recurrent (Primary Dx) 02/23/2025 4:15 PM CDT Telemedicine [address] [id number] Tavo Petty MD No diagnosis on [place] (Primary Dx) 02/23/2025 9:00 AM CDT Therapy [address] [id number] Major depressive disorder, remission status unspecified, unspecified whether recurrent (Primary Dx) 02/18/2025 9:00 AM CDT Therapy [facility] [id number] [place] [id number] Major depressive disorder, remission status unspecified, unspecified whether recurrent (Primary Dx) 02/16/2025 9:00 AM CDT Therapy [facility] [id number] [place] [id number] Grief (Primary Dx); Major depressive disorder, remission status unspecified, unspecified whether recurrent; Generalized anxiety disorder 02/10/2025 10:30 AM CDT Clinical Support [facility] [id number] [place] [id number] from Last 3 Months Surgical History Surgery Date Site/Laterality Comments SECTION 2009, 2013, 2014 LAPAROSCOPIC GASTRIC BANDING 07/23/2010 - 07/22/2011 removed 2015 s/p rupture TUBAL LIGATION 2014 BARIATRIC SURGERY 2010 CHOLECYSTECTOMY 2011 Medical History Medical History Date Comments Asthma Sleep apnea Vitamin D deficiency Anxiety and depression COVID-19 virus detected 08/23/2021 Morbid obesity (HCC) Obesity Urinary incontinence 2018 PONV (postoperative nausea and vomiting) Hyperlipidemia Hypothyroidism Chronic post-traumatic stress disorder (PTSD) Bipolar disorder Family History Medical History Relation Name Comments Hyperlipidemia Father Luis Manuel Rodriguez Hypertension Father Luis Manuel Rodriguez Bipolar disorder Other Paternal great-aunt Alzheimer's disease Paternal Grandfather Stroke Paternal Grandmother Seizures Paternal Great-Grandmother Anesthesia problems Neg Hx Relation Name Status Comments Father Luis Manuel Rodriguez Other Paternal great-aunt Paternal Grandfather Paternal Grandmother Paternal Great-Grandmother Alive Social History Tobacco Use Types Packs/Day Years Used Date Smoking Tobacco: Former Cigarettes 1 23.8 1 998 - 05/12/2021 Tobacco Cessation:Counseling Given: Not Answered AUDIT-C Answer Date Recorded Q1: How often do you have a drink containing alc ohol? Monthly or less 08/03/2022 Q2: How many drinks containi ng alcohol do you have on a typical day when you are drinking? 1 or 2 08/03/2022 Q3: How often do you have si x or more drinks on one occasion? Never 08/03/2022 Personal Safety Answer Date Recorded Getting School Help Needed Denies 07/03 Comments No Sex and Gender Information Value Date Recorded Sex Assigned at Not on file Legal Sex Female 2:41 PM MANAGER FACILITY Gender Identity Female 01/25/2021 11:10 AM CDT Sexual Orientation Straight 01/25/2021 11 :10 AM CDT Obstetrics History Last Filed Vital Signs Vital Sign Reading Time Taken Comments Blood Pressure 135/82 02/16/2025 8:51 AM CDT Pulse 106 02/16/2025 8:51 AM CDT Temperature 36.8 C (98.2 F) 06/16/2024 8:10 AM MANAGER FACILITY Respiratory Rate 20 02/16/2025 8:51 AM CDT Oxygen Saturation 97% 06/16/2024 8:10 AM MANAGER FACILITY Inhaled Oxygen Concentration - - Weight 110.2 kg (243 lb) 10/06/2024 9:26 AM CDT Height 162.6 cm (5' 4) 10/06/2024 9:26 AM CDT Body Mass Index 41.71 10/06/2024 9:26 AM CDT Plan of Treatment Health Maintenance Due Date Last Done Comments Breast Cancer Screening-Mammogram 1983 Cervical Cancer Screening 1983 Depression Screening 1983 Hepatitis C Screening 1983 DTaP/Tdap/Td Vaccine (1 - Tdap) 1994 Varicella Vaccines (1 of 2 - 13+ 2-dose series) 02/04/1996 Hepatitis B Screening 2001 Regular Well Visit/Exam 18-64 2001 Pneumococcal vaccine <65 (1 of 2 - PCV) 2002 HPV Vaccines (1 - 3-dose SCDM series) 2010 Covid-19 Vaccine ( season) 2024, 11/03/2020 Influenza Vaccine (#1) [address] [place] [place] [address] [facility] [place] [address] [place] [address] [place] Advance Directives For more information, please contact: [phone] Documents on File Type Date Recorded 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
--- OUTSIDE RECORDS SUMMARY | 2025-03-20 09:38 | XMS_ITS | Patient Health Record ---
Author Organization [facility] Address [address] [place] [address] Care Team Providers Care Internal Auditor Name Role Phone Neeru Lepe Primary Care Provider Magnolia Pleitez Unavailable [phone] Rubio Burciaga Unavailable [phone] Allergies No Known Allergies Results Component Value Reference Range Notes Vitamin B12 and Folate Reviewed date:06/10/2024 01:36:16 PM Interpretation:Abnormal Performing Lab:[place], [address] [facility], Phone - [phone], [facility] Notes/Report: Vitamin B12 0972 459-3813 pg/mL Folate (Folic Acid), Serum >20.0 >3.0 ng/mL A serum folate concentration of less than 3.1 ng/mL is considered to represent clinical deficiency. Hemoglobin A1c* Reviewed date:06/06/2024 11:00:43 AM Interpretation:Normal Performing Lab:[place], [address] [facility], Phone - [phone], [facility] Notes/Report: Hemoglobin A1c 5.3 4.8-5.6 % . Prediabetes: 5.7 - 6.4 Diabetes: >6.4 Glycemic control for adults with diabetes: <7.0 TSH* Reviewed date:06/06/2024 11:01:04 AM Interpretation:Normal Performing Lab:[place], [address] [facility], Phone - [phone], Director - [facility] Notes/Report: TSH 2.160 0.450-4.500 uIU/mL CBC With Differential/Platel et* Reviewed date:06/06/2024 11:01:31 AM Interpretation:Normal Performing Lab:[facility], [address] [facility], Phone - [phone], Director - [facility] Notes/Report: WBC 10.5 3.4-10.8 x10E3/uL RBC 4.57 3.77-5.28 x10E6/uL Hemoglobin 13.4 11.1-15.9 g/dL Hematocrit 41.5 34.0-46.6 % MCV 91 79-97 fL MCH 29.3 26.6-33.0 pg MCHC 32.3 31.5-35.7 g/dL RDW 11.9 11.7-15.4 % Platelets 399 150-450 x10E3/uL Neutrophils 64 Not Estab. % Lymphs 28 Not Estab. % Monocytes 5 Not Estab. % Eos 2 Not Estab. % Basos 1 Not Estab. % Neutrophils (Absolute) 6.6 1.4-7.0 x10E3/uL Lymphs (Absolute) 3.0 0.7-3.1 x10E3/uL Monocytes(Absolute) 0.6 0.1-0.9 x10E3/uL Eos (Absolute) 0.2 0.0-0.4 x10E3/uL Baso (Absolute) 0.1 0.0-0.2 x10E3/uL Immature Granulocytes 0 Not Estab. % Immature Grans (Abs) 0.0 0.0-0.1 x10E3/uL Exira (Eskalith(R)), Serum Reviewed date:06/06/2024 11:00:32 AM Interpretation:Normal Performing Lab:[facility], [address] [facility], Phone - [phone], Director - [facility] Notes/Report: Exira (Eskalith(R)), Serum 0.8 0.5-1.2 mmol/L A concentration of 0.5-0.8 mmol/L is advised for long-term use; concentrations of up to 1.2 mmol/L may be necessary during acute treatment. Detection Limit = 0.1 <0.1 indicates None Detected Vitamin D, 25-Hydroxy* Reviewed date:06/06/2024 11:00:17 AM Interpretation:Normal Performing Lab:[facility], [address] [facility], Phone - [phone], Director - [facility] Notes/Report: Vitamin D, 25-Hydroxy 39.2 30.0-100.0 ng/mL Vitamin D deficiency has been defined by the Harrison of Medicine and an Endocrine Society practice guideline as a level of serum 25-OH vitamin D less than 20 ng/mL (1,2). The Endocrine Society went on to further define vitamin D insufficiency as a level between 21 and 29 ng/mL (2). 1. IOM ([place] of Medicine). 2010. Dietary reference intakes for calcium and D. [place]: The National AcademCogniscan Press. 2. Jonah MF, Ileana SEBASTIAN, Toribio CURTIS, et al. Evaluation, treatment, and prevention of vitamin D deficiency: an Endocrine Society clinical practice guideline. JCEM. 2010; 96(7):1911-30. Lipid Panel* Reviewed date:06/06/2024 11:00:54 AM Interpretation:Abnormal Performing Lab:[facility] [address] [facility], Phone - [phone], Director - [facility] Notes/Report: Cholesterol, Total 137 100-199 mg/dL Triglycerides 150 0-149 mg/dL HDL Cholesterol 48 >39 mg/dL VLDL Cholesterol Rambo 26 5-40 mg/dL LDL Chol Calc ([facility]) 63 0-99 mg/dL CMP 14 Comprehensive Metabol ic Panel* Reviewed date:06/06/2024 11:01:14 AM Interpretation:Abnormal Performing Lab:[facility] [place], [address] [facility], Phone - [phone], Director - [facility] Notes/Report: Glucose 107 70-99 mg/dL BUN 14 6-24 mg/dL Creatinine 0.65 0.57-1.00 mg/dL eGFR 113 >59 mL/min/1.73 BUN/Creatinine Ratio 22 9-23 Sodium 141 134-144 mmol/L Potassium 4.5 3.5-5.2 mmol/L Chloride 105 96-106 mmol/L Carbon Dioxide, Total 24 20-29 mmol/L Calcium 9.4 8.7-10.2 mg/dL Protein, Total 6.1 6.0-8.5 g/dL Albumin 4.0 3.9-4.9 g/dL Globulin, Total 2.1 1.5-4.5 g/dL Bilirubin, Total 0.4 0.0-1.2 mg/dL Alkaline Phosphatase 78 44-121 IU/L AST (SGOT) 16 0-40 IU/L ALT (SGPT) 20 0-32 IU/L Herpes Simplex Virus Types 1 and 2 -specific Antibodies, IgG Reviewed date:09/18/2024 02:05:22 PM Interpretation: Performing Lab:[place] [id number] [facility], Phone - [phone], Director - [facility] Notes/Report: HSV 1 IgG, Type Spec Non Reactive Non Reactive Please note reference interval change HSV-1 IgG testing performed using the [employer] HSV-1 IgG assay. HSV 2 IgG, Type Spec Non Reactive Non Reactive Please note reference interval change Current guidelines and recommendations do not recommend routine screening for HSV-2 in asymptomatic individuals, including those that are . The detection of HSV-2 IgG antibodies in a single sample indicates previous exposure to HSV-2 but does not give information as to the site of HSV infection or the timing of exposure. The predictive value of positive and negative results depends on the population's prevalence and the pretest likelihood of HSV-2. HSV-2 IgG testing performed using the [employer] HSV-2 IgG assay. Hepatitis C Virus Antibody w /Rflx to Quantitative Real-time PCR ([id number]) Reviewed date:09/18/2024 02:05:11 PM Interpretation: Performing Lab:[address], Phone - [phone], Director - [facility] Notes/Report: HCV Ab Non Reactive Non Reactive Interpretation: Not infected with HCV unless early or acute infection is suspected (which may be delayed in an immunocompromised individual), or other evidence exists to indicate HCV infection. HIV Screen *HIV 1, 2 Ab, p24 Ag ([id number]) Reviewed date:09/18/2024 02:04:58 PM Interpretation: Performing Lab:[facility], [address] [facility], Phone - [phone], Director - [facility] Notes/Report: HIV Ab/p24 Ag Screen Non Reactive Non Reactive HIV-1/HIV-2 antibodies and HIV-1 p24 antigen were NOT detected. There is no laboratory evidence of HIV infection. HIV Negative HIV Screen *HIV 1, 2 Ab, p24 Ag ([id number]) Reviewed date:09/18/2024 02:06:14 PM Interpretation: Performing Lab:[facility] [place], [address] [facility], Phone - [phone], Director - [facility] Notes/Report: HIV Ab/p24 Ag Screen Non Reactive Non Reactive HIV Negative HIV-1/HIV-2 antibodies and HIV-1 p24 antigen were NOT detected. There is no laboratory evidence of HIV infection. CBC With Differential/Platel et* Reviewed date:09/18/2024 02:07:59 PM Interpretation: Performing Lab:[facility] [place], [address] [facility], Phone - [phone], Director - [facility] Notes/Report: WBC 13.5 3.4-10.8 x10E3/uL RBC 4.38 3.77-5.28 x10E6/uL Hemoglobin 12.8 11.1-15.9 g/dL Hematocrit 39.2 34.0-46.6 % MCV 90 79-97 fL MCH 29.2 26.6-33.0 pg MCHC 32.7 31.5-35.7 g/dL RDW 12.0 11.7-15.4 % Platelets 727 150-450 x10E3/uL Neutrophils 65 Not Estab. % Lymphs 26 Not Estab. % Monocytes 5 Not Estab. % Eos 2 Not Estab. % Basos 1 Not Estab. % Neutrophils (Absolute) 8.8 1.4-7.0 x10E3/uL Lymphs (Absolute) 3.5 0.7-3.1 x10E3/uL Monocytes(Absolute) 0.7 0.1-0.9 x10E3/uL Eos (Absolute) 0.3 0.0-0.4 x10E3/uL Baso (Absolute) 0.1 0.0-0.2 x10E3/uL Immature Granulocytes 1 Not Estab. % Immature Grans (Abs) 0.2 0.0-0.1 x10E3/uL (An elevated percentage of Immature Granulocytes has not been found to be clinically significant as a sole clinical predictor of disease. Does NOT include bands or blast cells. associated physiological leukocytosis may also show increased immature granulocytes without clinical significance.) Hepatitis C Virus Antibody w /Rflx to Quantitative Real-time PCR ([id number]) Reviewed date:09/18/2024 02:08:09 PM Interpretation: Performing Lab:[address], Phone - [phone], Director - [facility] Notes/Report: HCV Ab Non Reactive Non Reactive Interpretation: Not infected with HCV unless early or acute infection is suspected (which may be delayed in an immunocompromised individual), or other evidence exists to indicate HCV infection. Herpes Simplex Virus Types 1 and 2 -specific Antibodies, IgG Reviewed date:09/18/2024 02:06:58 PM Interpretation: Performing Lab:[facility], [address] [place] [address], Phone - [phone], Director - [facility] Notes/Report: HSV 1 IgG, Type Spec Non Reactive Non Reactive Please note reference interval change HSV-1 IgG testing performed using the [employer] HSV-1 IgG assay. HSV 2 IgG, Type Spec Non Reactive Non Reactive Please note reference interval change Current guidelines and recommendations do not recommend routine screening for HSV-2 in asymptomatic individuals, including those that are . The detection of HSV-2 IgG antibodies in a single sample indicates previous exposure to HSV-2 but does not give information as to the site of HSV infection or the timing of exposure. The predictive value of positive and negative results depends on the population's prevalence and the pretest likelihood of HSV-2. HSV-2 IgG testing performed using the [employer] HSV-2 IgG assay. Rapid Plasma Reagin (RPR) Te st With Reflex to Quantitative RPR and Confirmatory Treponema pallidum Antibodies Reviewed date:09/18/2024 02:06:46 PM Interpretation: Performing Lab:[facility], [address] [place] [address], Phone - [phone], Director - [facility] Notes/Report: RPR Non Reactive Non Reactive Reason For Referral No Information Medications Medication SIG (Take, Route, Frequency, Duration) Notes Start Date End Date Status QUEtiapine Fumarate 25 MG 1 tablet at be dtime Orally Once a day; Duration: 30 days Active Methylphenidate HCl 10 MG 1 tablet on em pty stomach Orally three tablets per day; Duration: 14 days 03/17/2025 Active Melatonin 5 MG 1 capsule at bedtime as needed Orally Once a day OTC Active Nextstellis Active metFORMIN HCl ER 500 MG 1 tablet with ev ening meal Orally Once a day; Duration: 30 days Active Loratadine 10 MG 1 tablet Orally Once a day; Duration: 30 days Active Pravastatin Sodium 20 MG TAKE 1 TABLET B Y MOUTH DAILY; Duration: 90 Active Venlafaxine HCl ER 37.5 MG 1 capsule wit h food Orally Once a day; Duration: 30 days Active Levothyroxine Sodium 125 MCG TAKE 1 TABLET BY MOUTH EVERY DAY IN THE MORNING ON AN EMPTY STOMACH; Duration: 120 Active lamoTRIgine 100 MG 1 tablet Orally Once daily; Duration: 30 days Active clonazePAM 0.5 MG 0.5 - 1 tablet Orally Once a day; Duration: 14 days As needed 12/30/2024 Active Abilify Maintena 400 MG as directed Intr amuscular every 28 days; Duration: 28 days Active Abilify Maintena 400 MG INJECT 1 SYRINGE IN THE MUSCLE EVERY 28 DAYS Active QUEtiapine Fumarate 25 MG TAKE 1 TABLET BY MOUTH DAILY AT BEDTIME; Duration: 30 Active Social History Tobacco Use: Social History Observation Description Date Details (start date - stop date) Former Smoker NA - NA Sex Assigned At : Social History Observation Description Sex Assigned At Female Alcohol Screen (Audit-C) Question Answer Notes Did you have a drink contain ing alcohol in the past year? Yes How often did you have a dri nk containing alcohol in the past year? Monthly or less (1 point) How many drinks did you have on a typical day when you were drinking in the past year? 1 or 2 drinks (0 point) How often did you have 6 or more drinks on one occasion in the past year? Never (0 point) Points 1 Interpretation Negative Tobacco Control (Standard) Question Answer Notes Tobacco use: Former smoker Section Notes: 15 year pack smoking history 15 year pack smoking history 15 year pack smoking history 15 year pack smoking history 15 year pack smoking history 15 year pack smoking history 15 year pack smoking history 15 year pack smoking history 15 year pack smoking history 15 year pack smoking history 15 year pack smoking history 15 year pack smoking history 15 year pack smoking history 15 year pack smoking history 15 year pack smoking history 15 year pack smoking history 15 year pack smoking history 15 year pack smoking history 15 year pack smoking history 15 year pack smoking history 15 year pack smoking history 15 year pack smoking history 15 year pack smoking history 15 year pack smoking history 15 year pack smoking history 15 year pack smoking history 15 year pack smoking history 15 year pack smoking history Problems Problem Type SNOMED Code ICD Code Onset Dates Problem Status W/U Status Risk Notes Problem Hypothyroidism (22932705) Other specified hypothyroidism (E03.8) Active confirmed Problem Autoimmune thyroiditis (03117777) Autoimmune thyroiditis (E06.3) Active confirmed Problem Morbid obesity (disorder) (611311554) Morbid (severe) obesity due to excess calories (E66.01) Active confirmed Problem Mixed hyperlipidemia (340595919) Mixed hyperlipidemia (E78.2) Active confirmed Problem Attention deficit hyperactivity disorder, 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) Attention and concentration deficit (R41.840) Active confirmed 6/2 ADHD screen part A 4, Part B 9 Problem Bipolar 1 disorder (631636133) Bipolar 1 disorder (F31.9) 021 Active confirmed most recent epsiode mixed Problem Generalized anxiety disorder (68996027) MILADIS (generalized anxiety disorder) (F41.1) 021 Active confirmed Problem Overweight (995693944) Over weight (E66.3) Active confirmed Problem Polycystic ovary syndrome (disorder) (783691776) PCOS (polycystic ovarian syndrome) (E28.2) Active confirmed Problem Obstructive sleep apnea syndrome (29436731) MONA (obstructive sleep apnea) (G47.33) Active confirmed CONTROLLED ON CPAP Problem Major depressive disorder (303369613) MDD (major depressive disorder) (F32.9) Active confirmed Problem Obesity (595060110) Obesity, unspecified classification, unspecified obesity type, unspecified whether serious comorbidity present (E66.9) Active confirmed Problem Midline cystocele (564379714) Prolapse of female bladder, acquired (N81.10) Active confirmed Vital Signs Heart Rate 78 /min 03/12/2025 mdn Temperature 98.6 degrees Fahrenheit 03/12/2025 mdn Respiratory Rate 18 /min 03/12/2025 mdn Oximetry 98 % 03/12/2025 mdn Blood pressure diastolic 78 mm Hg 03/12/2025 mdn Height 64.5 in in 03/12/2025 mdn Blood pressure systolic 110 mm Hg 03/12/2025 mdn Weight 233.8 lbs lbs 03/12/2025 mdn BMI 39.51 kg/m2 03/12/2025 mdn Encounters Encounter Location Date Provider Diagnosis [facility] [address] [place] [address] 03/11/2025 Neeru Lepe [address] [place] [address] 04/22/2024 Rubio Burciaga PCOS (polycystic ovarian syndrome) E28.[address] [place] [address] 05/06/2024 Rubio Burciaga Mixed hyperlipidemia E78.[address] [place] [address] 05/19/[address] [place] [address] 05/28/[address] [place] [address] 06/23/2024 Neeru Lepe Bipolar 1 disorder F31.[address] [place] [address] 07/02/2024 Rubio Burciaga [address] [place] [address] 09/30/2024 [place] [address] [place] [address] 11/04[facility]20[facility] [address] [place] [address] 11/12/2024 Neeru Vargasnnan [facility] [address] [place] [address] 11/20/2024 Neeru Lepe Bipolar 1 disorder F31.9 [place] [address] [place] [address] 12/01/2024 Neeru Lepe Bipolar 1 disorder F31.[address] [place] [address] 12/09/2024 Neeru Vargasnnan [address] [place] [address] 12/30/2024 Neeru Lepe [facility] [place] [address] 01/06/2025 Neeru Lepe Bipolar 1 disorder F31.9 [facility] [address] [place] [address] 02/02/2025 Neeru Lepe [address] [place] [address] 02/10/2025 Neeru Lepe Attention and concentration deficit R41.840 [place] [address] [place] [address] 02/11/2025 Neeru Lepe Attention and concentration deficit R41.[address] [place] [address] 03/02/2025 Neeru Lepe [address] [address] 03/06/2025 Neeru Lepe [place] [address] [place] [address] 01/15/2025 Neeru Lepe Bipolar 1 disorder F31.9 [facility] [address] [place] [address] 02/12/2025 Neeru Lepe Bipolar 1 disorder F31.9 [facility] [address] [place] [address] 03/12/2025 Neeru Lepe Bipolar 1 disorder F31.9 [facility] [address] [place] [address] 11/04/2024 Neeru Lepe Over weight E66.3 ; Bipolar 1 disorder F31.9 ; MILADIS (generalized anxiety disorder) F41.1 ; Attention and concentration deficit R41.840 ; Medication monitoring encounter Z51.81 and Nutritional counseling Z71.3 [facility] [place] [address] 12/16/2024 Neeru Lepe Over weight E66.3 ; Bipolar 1 disorder F31.9 ; MILADIS (generalized anxiety disorder) F41.1 ; Attention and concentration deficit R41.840 ; Medication monitoring encounter Z51.81 and Nutritional counseling Z71.3 [facility] [address] [place] [address] 09/30/2024 Neeru Lepe Nutritional counseli ng Z71.3 ; Bipolar 1 disorder F31.9 ; MILADIS (generalized anxiety disorder) F41.1 ; Attention and concentration deficit R41.840 and Medication monitoring encounter Z51.81 [facility] [address] [facility] [address] 10/07/2024 Neeru Lepe Bipolar 1 disorder F31.9 ; MILADIS (generalized anxiety disorder) F41.1 ; Attention and concentration deficit R41.840 ; Medication monitoring encounter Z51.81 and Nutritional counseling Z71.[address] [place] [address] 05/19/2024 Neeru Lepe Bipolar 1 disorder F31.9 ; MILADIS (generalized anxiety disorder) F41.1 and Attention and concentration deficit R41.[address] [address] 06/04/2024 Neeru Lepe Medication monitorin g encounter Z51.81 ; Fatigue R53.83 and Bipolar 1 disorder F31.[address] [place] [address] 06/26/2024 Rubio Burciaga Exposure to potentia l infection Z20.9 and Oral ulceration K12.[address] [place] [address] 04/09/2024 Rubio Burciaga Nutritional counseli ng Z71.3 ; Other specified hypothyroidism E03.8 ; Mixed hyperlipidemia E78.2 and Bipolar 1 disorder F31.[address] [place] [address] 06/26/2024 Rubio Burciaga Oral ulceration K12. 1 ; Exposure to potential infection Z20.9 and Nutritional counseling Z71.[address] [address] 07/02/2024 Neeru Lepe Bipolar 1 disorder F31.9 ; MILADIS (generalized anxiety disorder) F41.1 ; Attention and concentration deficit R41.840 and Medication monitoring encounter Z51.81 [facility] [address] [place] [address] 07/22/2024 Neerumelissa Lepe Bipolar 1 disorder F31.9 ; MILADIS (generalized anxiety disorder) F41.1 ; Attention and concentration deficit R41.840 and Medication monitoring encounter Z51.[address] [address] 08/13/2024 Neerumelissa Lepe Bipolar 1 disorder F31.9 ; MILADIS (generalized anxiety disorder) F41.1 ; Attention and concentration deficit R41.840 and Medication monitoring encounter Z51.[address] [address] 08/27/2024 Neeru Lepe Bipolar 1 disorder F31.9 ; MILADIS (generalized anxiety disorder) F41.1 ; Attention and concentration deficit R41.840 and Medication monitoring encounter Z51.[address] [address] 09/24/2024 Neeru Lepe Bipolar 1 disorder F31.9 ; MILADIS (generalized anxiety disorder) F41.1 ; Attention and concentration deficit R41.840 and Medication monitoring encounter Z51.[address] [address] 06/12/2024 Neeru Lepe Bipolar 1 disorder F31.9 ; MILADIS (generalized anxiety disorder) F41.1 ; Attention and concentration deficit R41.840 ; Medication monitoring encounter Z51.81 and Fatigue R53.[address] [address] 05/29/2024 Neeru Lepe Bipolar 1 disorder F31.9 ; MILADIS (generalized anxiety disorder) F41.1 ; Attention and concentration deficit R41.840 ; Medication monitoring encounter Z51.81 and Fatigue R53.83 [facility] [address] [place] [address] 10/21/2024 Neeru Lepe Bipolar 1 disorder F31.9 ; MILADIS (generalized anxiety disorder) F41.1 ; Attention and concentration deficit R41.840 ; Medication monitoring encounter Z51.81 and Nutritional counseling Z71.3 [facility] [address] [place] [address] 01/20/2025 Neeru Vargasnnan Over weight E66.3 ; Bipolar 1 disorder F31.9 ; MILADIS (generalized anxiety disorder) F41.1 ; Attention and concentration deficit R41.840 ; Medication monitoring encounter Z51.81 and Nutritional counseling Z71.3 [facility] [place] [address] 03/17/2025 Neeru Lepe Bipolar 1 disorder F31.9 ; MILADIS (generalized anxiety disorder) F41.1 ; Attention and concentration deficit R41.840 and Medication monitoring encounter Z51.[address] [place] [address] 02/18/2025 Neeru Vargasnnan Over weight E66.3 ; Bipolar 1 disorder F31.9 ; MILADIS (generalized anxiety disorder) F41.1 ; Attention and concentration deficit R41.840 ; Medication monitoring encounter Z51.81 and Nutritional counseling Z71.3 [place] [address] [place] [address] 03/10/2025 Neeru Lepe Bipolar 1 disorder F31.9 ; MILADIS (generalized anxiety disorder) F41.1 ; Attention and concentration deficit R41.840 ; Medication monitoring encounter Z51.81 ; Nutritional counseling Z71.3 and Over weight E66.3 Assessments Encounter Date Diagnosis (ICD Code) Assessment Notes Treatment Notes Treatment Clinical Notes Section Notes 08/13/2024 Bipolar 1 disorder (ICD-10 - F31.9) most recent epsiode mixed Continue decreased vraylar for flattening, may look to decrease further. Continue venlafaxine as provider has noted that depression scores started to increase when bupropion was stopped, continue for norepi properties- discussed dosing with client and possible need to increase and maximize norepi properties. Discussed this medication over wellbutrin due to interactions with Strattera as well as anxiolytic properties. Per genesight testing, likely low levels of lamotrigine, may look to increase further for bipolar maintenance/depressi on. past medication trials of Lexapro, abilify- for 1 month, Risperdal- 1 month, latuda-worke d for a few months then plateaued, Seroquel - year and half; made too tired, celexa, Wellbutrin, Prozac, lithium, vraylar, Zoloft, Strattera, lamotrigine 04/22/2024 PCOS (polycystic ovarian syndrome) (ICD-10 - E28.2) 09/30/2024 Nutritional counseling (ICD-10 - Z71.3) 11/20/2024 Bipolar 1 disorder (ICD-10 - F31.9) most recent epsiode mixed 02/11/2025 Attention and concentration deficit (ICD-10 - R41.840) 12/22 ADHD screen part A 4, Part B 9 02/12/2025 Bipolar 1 disorder (ICD-10 - F31.9) most recent epsiode mixed 03/12/2025 Bipolar 1 disorder (ICD-10 - F31.9) most recent epsiode mixed 03/17/2025 Bipolar 1 disorder (ICD-10 - F31.9) most recent epsiode mixed Continue Abilify Maintena. Client with poor compliance with oral medication and also poor metabolism s/p gastric bypass. past medication trials of Lexapro, abilify- for 1 month, Risperdal- 1 month, latuda-worked for a few months then plateaued, Seroquel - year and half; made too tired, celexa, Wellbutrin, Prozac, lithium, vraylar, Zoloft, Strattera, lamotrigine Has tried Seroquel, Risperidone, Exira, Vraylar May look to wean lamotrigine in future appts. Continue at this time as stability with mood noted. Decreased venlafaxine as depression improved and anxiety fair, also decreased to also help lower risk of angel with stimulant on regimen now. Trazodone was changed to seroquel for better stability and sleep, states this is going well. 03/17/2025 MILADIS (generalized anxiety disorder) (ICD-10 - F41.1) Propranolol with increase in depression. Continue effexor at this time. 07/02/2024 Bipolar 1 disorder (ICD-10 - F31.9) most recent epsiode mixed Starting venlafaxine as provider has noted that depression scores started to increase when bupropion was stopped. Starting for norepi properties, discussed dosing with client and possible need to increase and maximize norepi properties. Discussed this medication over wellbutrin due to interactions with Strattera as well as anxiolytic properties. Per genesight testing, likely low levels of lamotrigine, may look to increase further for bipolar maintenance/depressi on. past medication trials of Lexapro, abilify- for 1 month, Risperdal- 1 month, latuda-worke d for a few months then plateaued, Seroquel - year and half; made too tired, celexa, Wellbutrin, Prozac, lithium, vraylar, Zoloft, Strattera, lamotrigine 07/02/2024 MILADIS (generalized anxiety disorder) (ICD-10 - F41.1) Continue therapy 06/26/2024 Exposure to potential infection (ICD-10 - Z20.9) 06/26/2024 Oral ulceration (ICD-10 - K12.1) 06/26/2024 Exposure to potential infection (ICD-10 - Z20.9) 06/23/2024 Bipolar 1 disorder (ICD-10 - F31.9) most recent epsiode mixed 05/19/2024 Bipolar 1 disorder (ICD-10 - F31.9) most recent epsiode mixed Client to enter into intensive outpatient program Mindful [facility] at [facility], screening to take place tomorrow morning. Client to call office if she is put on wait list so that further medication management and support can be provided. Client aware that her usual provider Neeru Lepe APRN will likely be back in office when she has completed IOP. She has been instructed on how to taper off Valium as she states she feels overly emotional on it and would like to wean off. 05/06/2024 Mixed hyperlipidemia (ICD-10 - E78.2) 04/09/2024 Other specified hypothyroidism (ICD-10 - E03.8) LINDSE[facility] SIGNED FOR [facility] 03/2024. 04/09/2024 Nutritional counseling (ICD-10 - Z71.3) 03/10/2025 Bipolar 1 disorder (ICD-10 - F31.9) most recent epsiode mixed Continue Abilify Maintena. Client with poor compliance with oral medication and also poor metabolism s/p gastric bypass. past medication trials of Lexapro, abilify- for 1 month, Risperdal- 1 month, latuda-worked for a few months then plateaued, Seroquel - year and half; made too tired, celexa, Wellbutrin, Prozac, lithium, vraylar, Zoloft, Strattera, lamotrigine Has tried Seroqul, Risperidone, Exira, Vraylar May look to wean lamotrigine in future appts. Continue at this time as stability with mood noted. Decreased venlafaxine as depression improved and anxiety fair at last appt and doing well with this- also decreased to also help lower risk of angel with stimulant on regimen now. Trazodone was changed to seroquel for better stability and sleep, states this is going well. Denies SI/HI. Client overall stable at this time with Abilify IBRAHIM on, if this medication has to be changed due to insurance, likely in-patient stay of 30 - 60 days as client has hx of needing inpatient stay when unstable. It would be iill-advised and unwise to stop or change this medication. Cost of medication is much less than an inpatient/res idential stay which can range up to $60,000 per episode (up to $120,000 if full 60 days), and this is not including the likely $2,700+ ER visit bill (also per episode). References from [facility] and [facility] are. 03/10/2025 MILADIS (generalized anxiety disorder) (ICD-10 - F41.1) Propranolol with increase in depression. Continue effexor at this time. 02/18/2025 Over weight (ICD-10 - E66.3) 02/10/2025 Attention and concentration deficit (ICD-10 - R41.840) 6/2 ADHD screen part A 4, Part B 9 01/20/2025 Over weight (ICD-10 - E66.3) 01/15/2025 Bipolar 1 disorder (ICD-10 - F31.9) most recent epsiode mixed 01/06/2025 Bipolar 1 disorder (ICD-10 - F31.9) most recent epsiode mixed 12/16/2024 Over weight (ICD-10 - E66.3) 12/01/2024 Bipolar 1 disorder (ICD-10 - F31.9) most recent epsiode mixed 11/04/2024 Over weight (ICD-10 - E66.3) 10/21/2024 Bipolar 1 disorder (ICD-10 - F31.9) most recent epsiode mixed Vraylar stopped, continue Abilify maintenna s/p oral trial which went well besides GI upset, has 7 more days of oral Abilify with injection. Client w poor absorption to MH medications s/p gastric bypass. Has tried Seroqul, Risperidone, Exira, Vraylar Weaning off lithium due to long-term risks and poor absorbtion. Will be off in 1 week, f/u in 2 weeks to assess stability. May look to wean venlafaxine and lamotrigine. Trazodone was changed to seroquel for better stability and sleep, states this is going well. Denies SI/HI. past medication trials of Lexapro, abilify- for 1 month, Risperdal- 1 month, latuda-worke d for a few months then plateaued, Seroquel - year and half; made too tired, celexa, Wellbutrin, Prozac, lithium, vraylar, Zoloft, Strattera, lamotrigine may look to restart bupropion. Client to monitor depression levels and any SI/HI. Discussed risks of wean. 10/07/2024 Bipolar 1 disorder (ICD-10 - F31.9) most recent epsiode mixed Vraylar stopped, continue Abilify maintenna s/p oral trial which went well besides GI upset, has 7 more days of oral Abilify with injection. Client w poor absorption to MH medications s/p gastric bypass. Has tried Seroqul, Risperidone, Exira, Vraylar Weaning off lithium due to long-term risks and poor absorbtion. Trazodone was changed to seroquel for better stability and sleep, states this is going well. Denies SI/HI. past medication trials of Lexapro, abilify- for 1 month, Risperdal- 1 month, latuda-worke d for a few months then plateaued, Seroquel - year and half; made too tired, celexa, Wellbutrin, Prozac, lithium, vraylar, Zoloft, Strattera, lamotrigine tentative plan: off Vraylar, weaning down on lihtium, stopped trazodone and started Seroquel, may look to stop venlafaxine; may look to restart bupropion. Client to monitor depression levels and any SI/HI. Discussed risks of wean. Lihtium wean plan, decrease weekly as tolerated: current 300am and 600pm now to start 300 BID then 150am and 300pm then stop morning dose, 300 in pm then 0 in am and 150 in pm then stop both. Noted that anxiety level is down and client is feeling more functional. Client appears more relaxed at appointment today than past appointment. 09/24/2024 Bipolar 1 disorder (ICD-10 - F31.9) most recent epsiode mixed Wean and stop Vraylar, starting Abilify with plan to being [employer] and [employer] not on formulary; plan to start maintenna s/p oral trial to verify response. Hx of trying with nausea noted per client's reports. May look to change trazodone to Seroquel if needed. past medication trials of Lexapro, abilify- for 1 month, Risperdal- 1 month, latuda-worke d for a few months then plateaued, Seroquel - year and half; made too tired, celexa, Wellbutrin, Prozac, lithium, vraylar, Zoloft, Strattera, lamotrigine tentative plan: wean and stop vraylar, start abilify, convert to IBRAHIM for better absoption r/t bariatric surgery in the past; assess other medications, may look to stop lithium, venlafaxine, propranolol and restart bupropion. 08/27/2024 Bipolar 1 disorder (ICD-10 - F31.9) most recent epsiode mixed Continue decreased vraylar for flattening, may look to decrease further. Continue venlafaxine as provider has noted that depression scores started to increase when bupropion was stopped, continue for norepi properties- discussed dosing with client and possible need to increase and maximize norepi properties. Discussed this medication over wellbutrin due to interactions with Strattera as well as anxiolytic properties. Per genesight testing, likely low levels of lamotrigine, may look to increase further for bipolar maintenance/depressi on. past medication trials of Lexapro, abilify- for 1 month, Risperdal- 1 month, latuda-worke d for a few months then plateaued, Seroquel - year and half; made too tired, celexa, Wellbutrin, Prozac, lithium, vraylar, Zoloft, Strattera, lamotrigine 07/22/2024 Bipolar 1 disorder (ICD-10 - F31.9) most recent epsiode mixed Decreasing vraylar for flattening Continue venlafaxine as provider has noted that depression scores started to increase when bupropion was stopped, continue for norepi properties- discussed dosing with client and possible need to increase and maximize norepi properties. Discussed this medication over wellbutrin due to interactions with Strattera as well as anxiolytic properties. Per genesight testing, likely low levels of lamotrigine, may look to increase further for bipolar maintenance/depressi on. past medication trials of Lexapro, abilify- for 1 month, Risperdal- 1 month, latuda-worke d for a few months then plateaued, Seroquel - year and half; made too tired, celexa, Wellbutrin, Prozac, lithium, vraylar, Zoloft, Strattera, lamotrigine 06/12/2024 Bipolar 1 disorder (ICD-10 - F31.9) most recent epsiode mixed Starting venlafaxine as provider has noted that depression scores started to increase when bupropion was stopped. Starting for norepi properties, discussed dosing with client and possible need to increase and maximize norepi properties. Discussed this medication over wellbutrin due to interactions with Strattera as well as anxiolytic properties. Per genesight testing, likely low levels of lamotrigine, may look to increase further for bipolar maintenance/depressi on. past medication trials of Lexapro, abilify- for 1 month, Risperdal- 1 month, latuda-worke d for a few months then plateaued, Seroquel - year and half; made too tired, celexa, Wellbutrin, Prozac, lithium, vraylar, Zoloft, Strattera, lamotrigine 06/04/2024 Medication monitoring encounter (ICD-10 - Z51.81) 05/29/2024 Bipolar 1 disorder (ICD-10 - F31.9) most recent epsiode mixed Per genesight testing, likely low levels of lamotrigine, increasing for bipolar maintenance/depressi on. May look to change to Latuda if needed. 05/29/2024 MILADIS (generalized anxiety disorder) (ICD-10 - F41.1) Discussed work, recommended time off at this time. Will adjust paperwork. 06/04/2024 Fatigue (ICD-10 - R53.83) 05/29/2024 Attention and concentration deficit (ICD-10 - R41.840) 6/2 ADHD screen part A 4, Part B 9 Per [employer], higher doses not recommended. Discussed with client not increasing above 80mg. Client v/u and agreement. 06/12/2024 MILADIS (generalized anxiety disorder) (ICD-10 - F41.1) Discussed work, continue to recommend time off at this time. 07/22/2024 MILADIS (generalized anxiety disorder) (ICD-10 - F41.1) Continue therapy 08/27/2024 MILADIS (generalized anxiety disorder) (ICD-10 - F41.1) Discussed possible depression 2/2 propranolol- decreasing and will monitor. Advised client to monitor her B/P. 09/24/2024 MILADIS (generalized anxiety disorder) (ICD-10 - F41.1) Discussed possible depression 2/2 propranolol- decreasing and will monitor. Advised client to monitor her B/P. 10/07/2024 MILADIS (generalized anxiety disorder) (ICD-10 - F41.1) Propranolol with increase in depression. Continue effexor at this time. Noted that anxiety level is down and client is feeling more functional. Client appears more relaxed at appointment today than past appointment. 10/21/2024 MILADIS (generalized anxiety disorder) (ICD-10 - F41.1) Propranolol with increase in depression. Continue effexor at this time. 11/04/2024 Bipolar 1 disorder (ICD-10 - F31.9) most recent epsiode mixed Continue Abilify Maintena for this month. Client with poor compliance with medications and states coming into the office can cause increased anxiety/fatigue. Will look to change to Asimptifi with next injection and stop Maintena if approved for best compliance. Sending order in now. Has tried Seroqul, Risperidone, Exira, Vraylar May look to wean venlafaxine and lamotrigine in future appts. Trazodone was changed to seroquel for better stability and sleep, states this is going well. Denies SI/HI. past medication trials of Lexapro, abilify- for 1 month, Risperdal- 1 month, latuda-worke d for a few months then plateaued, Seroquel - year and half; made too tired, celexa, Wellbutrin, Prozac, lithium, vraylar, Zoloft, Strattera, lamotrigine may look to restart bupropion. Client to monitor depression levels and any SI/HI. Discussed risks of wean. 12/16/2024 Bipolar 1 disorder (ICD-10 - F31.9) most recent epsiode mixed Continue Abilify Maintena for this month. Client with poor compliance with medications and states coming into the office can cause increased anxiety/fatigue. Will look to change to Asimptifi if able when insurance allows. Has tried Seroqul, Risperidone, Exira, Vraylar May look to wean venlafaxine and lamotrigine in future appts. Hold now due to low energy/motivation. Trazodone was changed to seroquel for better stability and sleep, states this is going well. Denies SI/HI. past medication trials of Lexapro, abilify- for 1 month, Risperdal- 1 month, latuda-worke d for a few months then plateaued, Seroquel - year and half; made too tired, celexa, Wellbutrin, Prozac, lithium, vraylar, Zoloft, Strattera, lamotrigine may look to restart bupropion. Client to monitor depression levels and any SI/HI. Discussed risks of wean. 01/20/2025 Bipolar 1 disorder (ICD-10 - F31.9) most recent epsiode mixed Continue Abilify Maintena for this month. Client with poor compliance with medications and states coming into the office can cause increased anxiety/fatigue. Will look to change to Asimptifi if able when insurance allows. Has tried Seroqul, Risperidone, Exira, Vraylar May look to wean venlafaxine and lamotrigine in future appts. Continue at this time as stability with mood and anxiety is noted. Trazodone was changed to seroquel for better stability and sleep, states this is going well. Denies SI/HI. past medication trials of Lexapro, abilify- for 1 month, Risperdal- 1 month, latuda-worke d for a few months then plateaued, Seroquel - year and half; made too tired, celexa, Wellbutrin, Prozac, lithium, vraylar, Zoloft, Strattera, lamotrigine may look to restart bupropion. 02/18/2025 Bipolar 1 disorder (ICD-10 - F31.9) most recent epsiode mixed Continue Abilify Maintena for this month. Client with poor compliance with medications and states coming into the office can cause increased anxiety/fatigue. Will look to change to Asimptifi if able when insurance allows. Has tried Seroqul, Risperidone, Exira, Vraylar May look to wean lamotrigine in future appts. Continue at this time as stability with mood noted. Decrease venlafaxine as depression improved and anxiety fair- decrease to also help lower risk of angel with stimulant on regimen now. Trazodone was changed to seroquel for better stability and sleep, states this is going well. Denies SI/HI. 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 Focalin with mild improvement but short duration of action Strattera stopped working Start methylphenidate IR 10mg in morning, 5 mg before lunch, and 5 mg early afternoon. 04/09/2024 Mixed hyperlipidemia (ICD-10 - E78.2) 05/19/2024 MILADIS (generalized anxiety disorder) (ICD-10 - F41.1) Ordered [employer], see TE Discussed continued hour reduction with work, re-eval in 4 weeks. Client to enter into intensive outpatient program Mindful Harrison at [facility], screening to take place tomorrow morning. Client to call office if she is put on wait list so that further medication management and support can be provided. Client aware that her usual provider Neeru Lepe APRN will likely be back in office when she has completed IOP. She has been instructed on how to taper off Valium as she states she feels overly emotional on it and would like to wean off. 06/26/2024 Nutritional counseling (ICD-10 - Z71.3) 07/02/2024 Attention and concentration deficit (ICD-10 - R41.840) 6/2 ADHD screen part A 4, Part B 9 Per [employer], higher doses not recommended. Discussed with client not increasing above 80mg. Client v/u and agreement. 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 Focalin with mild improvement but short duration of action Strattkimberly stopped working Increase methylphenidate IR 15mg in morning and afternoon 09/30/2024 Bipolar 1 disorder (ICD-10 - F31.9) most recent epsiode mixed Wean and stop Vraylar, starting Abilify maintenna s/p oral trial which went well besides GI upset. Client w poor absorption to MH medications s/p gastric bypass. Has tried Seroqul, Risperidone, Exira, Vraylar Weaning off lithium due to long-term risks and poor absorbtion. Change trazodone to seroquel for better stability and sleep. past medication trials of Lexapro, abilify- for 1 month, Risperdal- 1 month, latuda-worke d for a few months then plateaued, Seroquel - year and half; made too tired, celexa, Wellbutrin, Prozac, lithium, vraylar, Zoloft, Strattera, lamotrigine tentative plan: off Vraylar, weaning down on lihtium, stopped trazodone and started Seroquel, may look to stop venlafaxine, propranolol and restart bupropion. Lihtium wean plan, decrease weekly as tolerated: current 600am and 600mg then 300am and 600pm then 300 am and 450 (300 and 150)mgpm then 300mg BID then 150am and 300 pm then stop morning dose, 300 in pm then 0 in am and 150 in pm then stop both. 08/13/2024 MILADIS (generalized anxiety disorder) (ICD-10 - F41.1) Discussed possible depression 2/2 propranolol- decreasing and will monitor. Advised client to monitor her B/P. 09/30/2024 MILADIS (generalized anxiety disorder) (ICD-10 - F41.1) Propranolol with increase in depression. 08/13/2024 Attention and concentration deficit (ICD-10 - R41.840) 6/2 ADHD screen part A 4, Part B 9 Per [facility], higher doses not recommended. Discussed with client not increasing above 80mg. Client v/u and agreement. 07/02/2024 Medication monitoring encounter (ICD-10 - Z51.81) 03/17/2025 Medication monitoring encounter (ICD-10 - Z51.81) 05/19/2024 Attention and concentration deficit (ICD-10 - R41.840) 6/2 ADHD screen part A 4, Part B 9 Client to enter into intensive outpatient program Mindful [facility] at [facility], screening to take place tomorrow morning. Client to call office if she is put on wait list so that further medication management and support can be provided. Client aware that her usual provider Neeru Lepe APRN will likely be back in office when she has completed IOP. She has been instructed on how to taper off Valium as she states she feels overly emotional on it and would like to wean off. 04/09/2024 Bipolar 1 disorder (ICD-10 - F31.9) most recent epsiode mixed CONTINUE PSYCH F/U 02/18/2025 MILADIS (generalized anxiety disorder) (ICD-10 - F41.1) Propranolol with increase in depression. Continue effexor at this time. 03/10/2025 Medication monitoring encounter (ICD-10 - Z51.81) 01/20/2025 MILADIS (generalized anxiety disorder) (ICD-10 - F41.1) Propranolol with increase in depression. Continue effexor at this time. 12/16/2024 MILADIS (generalized anxiety disorder) (ICD-10 - F41.1) Propranolol with increase in depression. Continue effexor at this time. 11/04/2024 MILADIS (generalized anxiety disorder) (ICD-10 - F41.1) Propranolol with increase in depression. Continue effexor at this time. 10/21/2024 Attention and concentration deficit (ICD-10 - R41.840) 6/2 ADHD screen part A 4, Part B 9 Per [employer], higher doses not recommended. Discussed with client not increasing above 80mg. Client v/u and agreement. 10/07/2024 Attention and concentration deficit (ICD-10 - R41.840) 6/2 ADHD screen part A 4, Part B 9 Per [employer], higher doses not recommended. Discussed with client not increasing above 80mg. Client v/u and agreement. Noted that anxiety level is down and client is feeling more functional. Client appears more relaxed at appointment today than past appointment. 09/24/2024 Attention and concentration deficit (ICD-10 - R41.840) 6/2 ADHD screen part A 4, Part B 9 Per [employer], higher doses not recommended. Discussed with client not increasing above 80mg. Client v/u and agreement. 08/27/2024 Attention and concentration deficit (ICD-10 - R41.840) 6/2 ADHD screen part A 4, Part B 9 Per [employer], higher doses not recommended. Discussed with client not increasing above 80mg. Client v/u and agreement. 07/22/2024 Attention and concentration deficit (ICD-10 - R41.840) 6/2 ADHD screen part A 4, Part B 9 Per [employer], higher doses not recommended. Discussed with client not increasing above 80mg. Client v/u and agreement. 06/12/2024 Attention and concentration deficit (ICD-10 - R41.840) 6/2 ADHD screen part A 4, Part B 9 Per [employer], higher doses not recommended. Discussed with client not increasing above 80mg. Client v/u and agreement. 06/04/2024 Bipolar 1 disorder (ICD-10 - F31.9) 05/29/2024 Medication monitoring encounter (ICD-10 - Z51.81) 06/12/2024 Medication monitoring encounter (ICD-10 - Z51.81) 07/22/2024 Medication monitoring encounter (ICD-10 - Z51.81) 08/27/2024 Medication monitoring encounter (ICD-10 - Z51.81) 09/24/2024 Medication monitoring encounter (ICD-10 - Z51.81) 10/07/2024 Medication monitoring encounter (ICD-10 - Z51.81) Noted that anxiety level is down and client is feeling more functional. Client appears more relaxed at appointment today than past appointment. 10/21/2024 Medication monitoring encounter (ICD-10 - Z51.81) 12/16/2024 Attention and concentration deficit (ICD-10 - R41.840) 6/2 ADHD screen part A 4, Part B 9 Client with s/s of ADHD including not able to complete tasks, unable to start tasks, focusing on things she has interest in but not others, etc; See HPI 11/04/2024 Attention and concentration deficit (ICD-10 - R41.840) 6/2 ADHD screen part A 4, Part B 9 Per [employer], higher doses not recommended. Discussed with client not increasing above 80mg. Client v/u and agreement. 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 03/10/2025 Nutritional counseling (ICD-10 - Z71.3) 02/18/2025 Attention and concentration deficit (ICD-10 - R41.840) 6/2 ADHD screen part A 4, Part B 9 Client with s/s of ADHD including not able to complete tasks, unable to start tasks, focusing on things she has interest in but not others, etc; See HPI; halley garcia with minimal improvement, increase [facility] (bariatric sx with malabsorption has been noted, avoiding extended release meds.) PDMP checked without concerns. 08/13/2024 Medication monitoring encounter (ICD-10 - Z51.81) 09/30/2024 Attention and concentration deficit (ICD-10 - R41.840) 6/ ADHD screen part A 4, Part B 9 Per [employer], higher doses not recommended. Discussed with client not increasing above 80mg. Client v/u and agreement. 09/30/2024 Medication monitoring encounter (ICD-10 - Z51.81) 02/18/2025 Medication monitoring encounter (ICD-10 - Z51.81) 03/10/2025 Over weight (ICD-10 - E66.3) 01/20/2025 Medication monitoring encounter (ICD-10 - Z51.81) 12/16/2024 Medication monitoring encounter (ICD-10 - Z51.81) 10/21/2024 Nutritional counseling (ICD-10 - Z71.3) 11/04/2024 Medication monitoring encounter (ICD-10 - Z51.81) 10/07/2024 Nutritional counseling (ICD-10 - Z71.3) Noted that anxiety level is down and client is feeling more functional. Client appears more relaxed at appointment today than past appointment. 06/12/2024 Fatigue (ICD-10 - R53.83) 05/29/2024 Fatigue (ICD-10 - R53.83) 11/04/2024 Nutritional counseling (ICD-10 - Z71.3) 12/16/2024 Nutritional counseling (ICD-10 - Z71.3) 01/20/2025 Nutritional counseling (ICD-10 - Z71.3) 02/18/2025 Nutritional counseling (ICD-10 - Z71.3) 01/20/2025 Other Reasons, potential benefits, potential risks, interactions and side effects of all medications were discussed. The Patient/Guardian asked appropriate questions, appeared to understand the answers, and decided to accept the treatment and continue being followed. Alternatives and expected course without treatment were reviewed. The Patient/Guardian is aware of the need to contact the office or return for an earlier appointment if any problems or concerns arise. May also contact the 24-hour crisis hotline ([facility]), refer to the closest emergency room or call 911 if new symptoms arise of existing symptoms worsen. The Patient/Guardian is aware that this would apply to symptoms like: suicidal ideation, homicidal ideation, high risk behaviors, manic symptoms, psychotic symptoms, physical symptoms, or any other symptoms that may be dangerous to self or others. Greater than 50% of time spent on coordination and counseling where psychopharmacology as well as psychotherapeutic interventions were discussed along with review of treatments in the past. Education provided concerning need for adequate hydration. Patient/Guardian verbalized understanding of education, treatment plan and follow up. This session was completed telephonically with client/parental/guar milan consent: Unable to determine movement status, assess appearance, affect, AIMS, or vital signs. 10/07/2024 Other Reasons, potential benefits, potential risks, interactions and side effects of all medications were discussed. The Patient/Guardian asked appropriate questions, appeared to understand the answers, and decided to accept the treatment and continue being followed. Alternatives and expected course without treatment were reviewed. The Patient/Guardian is aware of the need to contact the office or return for an earlier appointment if any problems or concerns arise. May also contact the 24-hour crisis hotline ([facility]), refer to the closest emergency room or call 911 if new symptoms arise of existing symptoms worsen. The Patient/Guardian is aware that this would apply to symptoms like: suicidal ideation, homicidal ideation, high risk behaviors, manic symptoms, psychotic symptoms, physical symptoms, or any other symptoms that may be dangerous to self or others. Greater than 50% of time spent on coordination and counseling where psychopharmacology as well as psychotherapeutic interventions were discussed along with review of treatments in the past. Education provided concerning need for adequate hydration. Patient/Guardian verbalized understanding of education, treatment plan and follow up. Noted that anxiety level is down and client is feeling more functional. Client appears more relaxed at appointment today than past appointment. 06/12/2024 Other Reasons, potential benefits, potential risks, interactions and side effects of all medications were discussed. The Patient/Guardian asked appropriate questions, appeared to understand the answers, and decided to accept the treatment and continue being followed. Alternatives and expected course without treatment were reviewed. The Patient/Guardian is aware of the need to contact the office or return for an earlier appointment if any problems or concerns arise. May also contact the 24-hour crisis hotline ([facility]), refer to the closest emergency room or call 911 if new symptoms arise of existing symptoms worsen. The Patient/Guardian is aware that this would apply to symptoms like: suicidal ideation, homicidal ideation, high risk behaviors, manic symptoms, psychotic symptoms, physical symptoms, or any other symptoms that may be dangerous to self or others. Greater than 50% of time spent on coordination and counseling where psychopharmacology as well as psychotherapeutic interventions were discussed along with review of treatments in the past. Education provided concerning need for adequate hydration. Patient/Guardian verbalized understanding of education, treatment plan and follow up. This session was completed telephonically with client/parental/guar milan consent: Unable to determine movement status, assess appearance, affect, AIMS, or vital signs. 09/24/2024 Other Continue therapy. Reasons, potential benefits, potential risks, interactions and side effects of all medications were discussed. The Patient/Guardian asked appropriate questions, appeared to understand the answers, and decided to accept the treatment and continue being followed. Alternatives and expected course without treatment were reviewed. The Patient/Guardian is aware of the need to contact the office or return for an earlier appointment if any problems or concerns arise. May also contact the 24-hour crisis hotline ([facility]), refer to the closest emergency room or call 911 if new symptoms arise of existing symptoms worsen. The Patient/Guardian is aware that this would apply to symptoms like: suicidal ideation, homicidal ideation, high risk behaviors, manic symptoms, psychotic symptoms, physical symptoms, or any other symptoms that may be dangerous to self or others. Greater than 50% of time spent on coordination and counseling where psychopharmacology as well as psychotherapeutic interventions were discussed along with review of treatments in the past. Education provided concerning need for adequate hydration. Patient/Guardian verbalized understanding of education, treatment plan and follow up. This session was completed telephonically with client/parental/guar milan consent: Unable to determine movement status, assess appearance, affect, AIMS, or vital signs. 09/30/2024 Other Reasons, potential benefits, potential risks, interactions and side effects of all medications were discussed. The Patient/Guardian asked appropriate questions, appeared to understand the answers, and decided to accept the treatment and continue being followed. Alternatives and expected course without treatment were reviewed. The Patient/Guardian is aware of the need to contact the office or return for an earlier appointment if any problems or concerns arise. May also contact the -[facility] ([facility]), refer to the closest emergency room or call 911 if new symptoms arise of existing symptoms worsen. The Patient/Guardian is aware that this would apply to symptoms like: suicidal ideation, homicidal ideation, high risk behaviors, manic symptoms, psychotic symptoms, physical symptoms, or any other symptoms that may be dangerous to self or others. Greater than 50% of time spent on coordination and counseling where psychopharmacology as well as psychotherapeutic interventions were discussed along with review of treatments in the past. Education provided concerning need for adequate hydration. Patient/Guardian verbalized understanding of education, treatment plan and follow up. 10/21/2024 Other Reasons, potential benefits, potential risks, interactions and side effects of all medications were discussed. The Patient/Guardian asked appropriate questions, appeared to understand the answers, and decided to accept the treatment and continue being followed. Alternatives and expected course without treatment were reviewed. The Patient/Guardian is aware of the need to contact the office or return for an earlier appointment if any problems or concerns arise. May also contact the [address] [place] [address] ([facility]), refer to the closest emergency room or call 911 if new symptoms arise of existing symptoms worsen. The Patient/Guardian is aware that this would apply to symptoms like: suicidal ideation, homicidal ideation, high risk behaviors, manic symptoms, psychotic symptoms, physical symptoms, or any other symptoms that may be dangerous to self or others. Greater than 50% of time spent on coordination and counseling where psychopharmacology as well as psychotherapeutic interventions were discussed along with review of treatments in the past. Education provided concerning need for adequate hydration. Patient/Guardian verbalized understanding of education, treatment plan and follow up. This session was completed telephonically with client/parental/guar milan consent: Unable to determine movement status, assess appearance, affect, AIMS, or vital signs. 11/04/2024 Other Reasons, potential benefits, potential risks, interactions and side effects of all medications were discussed. The Patient/Guardian asked appropriate questions, appeared to understand the answers, and decided to accept the treatment and continue being followed. Alternatives and expected course without treatment were reviewed. The Patient/Guardian is aware of the need to contact the office or return for an earlier appointment if any problems or concerns arise. May also contact the 24-hour crisis hotline ([facility]), refer to the closest emergency room or call 911 if new symptoms arise of existing symptoms worsen. The Patient/Guardian is aware that this would apply to symptoms like: suicidal ideation, homicidal ideation, high risk behaviors, manic symptoms, psychotic symptoms, physical symptoms, or any other symptoms that may be dangerous to self or others. Greater than 50% of time spent on coordination and counseling where psychopharmacology as well as psychotherapeutic interventions were discussed along with review of treatments in the past. Education provided concerning need for adequate hydration. Patient/Guardian verbalized understanding of education, treatment plan and follow up. 07/02/2024 Other Reasons, potential benefits, potential risks, interactions and side effects of all medications were discussed. The Patient/Guardian asked appropriate questions, appeared to understand the answers, and decided to accept the treatment and continue being followed. Alternatives and expected course without treatment were reviewed. The Patient/Guardian is aware of the need to contact the office or return for an earlier appointment if any problems or concerns arise. May also contact the -hour crisis [facility] ([facility]), refer to the closest emergency room or call 911 if new symptoms arise of existing symptoms worsen. The Patient/Guardian is aware that this would apply to symptoms like: suicidal ideation, homicidal ideation, high risk behaviors, manic symptoms, psychotic symptoms, physical symptoms, or any other symptoms that may be dangerous to self or others. Greater than 50% of time spent on coordination and counseling where psychopharmacology as well as psychotherapeutic interventions were discussed along with review of treatments in the past. Education provided concerning need for adequate hydration. Patient/Guardian verbalized understanding of education, treatment plan and follow up. This session was completed telephonically with client/parental/guar milan consent: Unable to determine movement status, assess appearance, affect, AIMS, or vital signs. 07/22/2024 Other Reasons, potential benefits, potential risks, interactions and side effects of all medications were discussed. The Patient/Guardian asked appropriate questions, appeared to understand the answers, and decided to accept the treatment and continue being followed. Alternatives and expected course without treatment were reviewed. The Patient/Guardian is aware of the need to contact the office or return for an earlier appointment if any problems or concerns arise. May also contact the 24-hour crisis hotline ([facility]), refer to the closest emergency room or call 911 if new symptoms arise of existing symptoms worsen. The Patient/Guardian is aware that this would apply to symptoms like: suicidal ideation, homicidal ideation, high risk behaviors, manic symptoms, psychotic symptoms, physical symptoms, or any other symptoms that may be dangerous to self or others. Greater than 50% of time spent on coordination and counseling where psychopharmacology as well as psychotherapeutic interventions were discussed along with review of treatments in the past. Education provided concerning need for adequate hydration. Patient/Guardian verbalized understanding of education, treatment plan and follow up. This session was completed telephonically with client/parental/guar milan consent: Unable to determine movement status, assess appearance, affect, AIMS, or vital signs. 05/19/2024 Other Reasons, potential benefits, potential risks, interactions and side effects of all medications were discussed. The Patient/Guardian asked appropriate questions, appeared to understand the answers, and decided to accept the treatment and continue being followed. Alternatives and expected course without treatment were reviewed. The Patient/Guardian is aware of the need to contact the office or return for an earlier appointment if any problems or concerns arise. May also contact the 24-hour crisis hotline ([facility]), refer to the closest emergency room or call 911 if new symptoms arise of existing symptoms worsen. The Patient/Guardian is aware that this would apply to symptoms like: suicidal ideation, homicidal ideation, high risk behaviors, manic symptoms, psychotic symptoms, physical symptoms, or any other symptoms that may be dangerous to self or others. Greater than 50% of time spent on coordination and counseling where psychopharmacology as well as psychotherapeutic interventions were discussed along with review of treatments in the past. Education provided concerning need for adequate hydration. Patient/Guardian verbalized understanding of education, treatment plan and follow up. Client to enter into intensive outpatient program [facility] at [facility], screening to take place tomorrow morning. Client to call office if she is put on wait list so that further medication management and support can be provided. Client aware that her usual provider Neeru Lepe APRN will likely be back in office when she has completed IOP. She has been instructed on how to taper off Valium as she states she feels overly emotional on it and would like to wean off. 05/29/2024 Other Reasons, potential benefits, potential risks, interactions and side effects of all medications were discussed. The Patient/Guardian asked appropriate questions, appeared to understand the answers, and decided to accept the treatment and continue being followed. Alternatives and expected course without treatment were reviewed. The Patient/Guardian is aware of the need to contact the office or return for an earlier appointment if any problems or concerns arise. May also contact the 24-hour crisis hotline ([facility]), refer to the closest emergency room or call 911 if new symptoms arise of existing symptoms worsen. The Patient/Guardian is aware that this would apply to symptoms like: suicidal ideation, homicidal ideation, high risk behaviors, manic symptoms, psychotic symptoms, physical symptoms, or any other symptoms that may be dangerous to self or others. Greater than 50% of time spent on coordination and counseling where psychopharmacology as well as psychotherapeutic interventions were discussed along with review of treatments in the past. Education provided concerning need for adequate hydration. Patient/Guardian verbalized understanding of education, treatment plan and follow up. This session was completed telephonically with client/parental/guar milan consent: Unable to determine movement status, assess appearance, affect, AIMS, or vital signs. 08/13/2024 Other Reasons, potential benefits, potential risks, interactions and side effects of all medications were discussed. The Patient/Guardian asked appropriate questions, appeared to understand the answers, and decided to accept the treatment and continue being followed. Alternatives and expected course without treatment were reviewed. The Patient/Guardian is aware of the need to contact the office or return for an earlier appointment if any problems or concerns arise. May also contact the 24-hour crisis hotline ([facility]), refer to the closest emergency room or call 911 if new symptoms arise of existing symptoms worsen. The Patient/Guardian is aware that this would apply to symptoms like: suicidal ideation, homicidal ideation, high risk behaviors, manic symptoms, psychotic symptoms, physical symptoms, or any other symptoms that may be dangerous to self or others. Greater than 50% of time spent on coordination and counseling where psychopharmacology as well as psychotherapeutic interventions were discussed along with review of treatments in the past. Education provided concerning need for adequate hydration. Patient/Guardian verbalized understanding of education, treatment plan and follow up. This session was completed telephonically with client/parental/guar milan consent: Unable to determine movement status, assess appearance, affect, AIMS, or vital signs. 08/27/2024 Other Reasons, potential benefits, potential risks, interactions and side effects of all medications were discussed. The Patient/Guardian asked appropriate questions, appeared to understand the answers, and decided to accept the treatment and continue being followed. Alternatives and expected course without treatment were reviewed. The Patient/Guardian is aware of the need to contact the office or return for an earlier appointment if any problems or concerns arise. May also contact the 24-hour crisis hotline ([facility]), refer to the closest emergency room or call 911 if new symptoms arise of existing symptoms worsen. The Patient/Guardian is aware that this would apply to symptoms like: suicidal ideation, homicidal ideation, high risk behaviors, manic symptoms, psychotic symptoms, physical symptoms, or any other symptoms that may be dangerous to self or others. Greater than 50% of time spent on coordination and counseling where psychopharmacology as well as psychotherapeutic interventions were discussed along with review of treatments in the past. Education provided concerning need for adequate hydration. Patient/Guardian verbalized understanding of education, treatment plan and follow up. This session was completed telephonically with client/parental/guar milan consent: Unable to determine movement status, assess appearance, affect, AIMS, or vital signs. 02/18/2025 Other Reasons, potential benefits, potential risks, interactions and side effects of all medications were discussed. The Patient/Guardian asked appropriate questions, appeared to understand the answers, and decided to accept the treatment and continue being followed. Alternatives and expected course without treatment were reviewed. The Patient/Guardian is aware of the need to contact the office or return for an earlier appointment if any problems or concerns arise. May also contact the 24-hour crisis hotline ([facility]), refer to the closest emergency room or call 911 if new symptoms arise of existing symptoms worsen. The Patient/Guardian is aware that this would apply to symptoms like: suicidal ideation, homicidal ideation, high risk behaviors, manic symptoms, psychotic symptoms, physical symptoms, or any other symptoms that may be dangerous to self or others. Greater than 50% of time spent on coordination and counseling where psychopharmacology as well as psychotherapeutic interventions were discussed along with review of treatments in the past. Education provided concerning need for adequate hydration. Patient/Guardian verbalized understanding of education, treatment plan and follow up. This session was completed telephonically with client/parental/guar milan consent: Unable to determine movement status, assess appearance, affect, AIMS, or vital signs. 03/17/2025 Other Reasons, potential benefits, potential risks, interactions and side effects of all medications were discussed. The Patient/Guardian asked appropriate questions, appeared to understand the answers, and decided to accept the treatment and continue being followed. Alternatives and expected course without treatment were reviewed. The Patient/Guardian is aware of the need to contact the office or return for an earlier appointment if any problems or concerns arise. May also contact the 24-hour crisis hotline ([facility]), refer to the closest emergency room or call 911 if new symptoms arise of existing symptoms worsen. The Patient/Guardian is aware that this would apply to symptoms like: suicidal ideation, homicidal ideation, high risk behaviors, manic symptoms, psychotic symptoms, physical symptoms, or any other symptoms that may be dangerous to self or others. Greater than 50% of time spent on coordination and counseling where psychopharmacology as well as psychotherapeutic interventions were discussed along with review of treatments in the past. Education provided concerning need for adequate hydration. Patient/Guardian verbalized understanding of education, treatment plan and follow up. This session was completed telephonically with client/parental/guar milan consent: Unable to determine movement status, assess appearance, affect, AIMS, or vital signs. 03/10/2025 Other Reasons, potential benefits, potential risks, interactions and side effects of all medications were discussed. The Patient/Guardian asked appropriate questions, appeared to understand the answers, and decided to accept the treatment and continue being followed. Alternatives and expected course without treatment were reviewed. The Patient/Guardian is aware of the need to contact the office or return for an earlier appointment if any problems or concerns arise. May also contact the 24-hour crisis hotline ([facility]), refer to the closest emergency room or call 911 if new symptoms arise of existing symptoms worsen. The Patient/Guardian is aware that this would apply to symptoms like: suicidal ideation, homicidal ideation, high risk behaviors, manic symptoms, psychotic symptoms, physical symptoms, or any other symptoms that may be dangerous to self or others. Greater than 50% of time spent on coordination and counseling where psychopharmacology as well as psychotherapeutic interventions were discussed along with review of treatments in the past. Education provided concerning need for adequate hydration. Patient/Guardian verbalized understanding of education, treatment plan and follow up. This session was completed telephonically with client/parental/guar milan consent: Unable to determine movement status, assess appearance, affect, AIMS, or vital signs. Plan Of Treatment Next Appt Details Provider Name:Neeru kirk, 03/31/2025 01:40:00 PM, [address], [place], [address], Provider Name:Neeru kirk, 04/09/2025 10:00:00 AM, [address], [place], [address], Insurance Providers Payer Name Payer Address Payer Phone Subscriber Number Group Number Insured Name Patient Relationship to Insured Coverage Start Date Coverage End Date [facility] [address] [place] [address] [phone] [id number] Juana Rodriguez Self - patient is the insured 3 4 [facility] [address] [place] [address] [phone] [id number] Juana Rodriguez Self - patient is the insured 5 [facility] Attn Claims Department [address] [place] [address] [phone] [id number] Juana Rodriguez Self - patient is the insured 0 3 [facility] Attn Claims Department [address] [place] [address] [id number] Juana Rodriguez Self - patient is the insured 1 3 [facility] Attn Claims Department [address] [place] [address] [phone] [id number] Juana Rodriguez Self - patient is the insured 1 3 Medications Administered Medication Instructions Date of Administration Dosage Notes Abikellifjasper Maintena 09/30/2024 400 mg Walker-S Jane mcdowell 09/30/2024 02:46:51 PM CDT >Intramuscular injection administered in the R gluteal area. Patient tolerated the injection well. Abilify Maintena 11/04/2024 400 mg Noah-S Jane mcdowell 11/04/2024 02:40:39 PM CDT > Intramuscular injection administered in the L gluteal area. Patient tolerated the injection well. Abilify Maintena 12/16/2024 400 mg Lily Luna D 12/16/2024 03:20 PM CDT >Given IM Rt Gluteus, tolerated well. [facility]# [id number]. Abilify Maintena 01/15/2025 400 mg Jeremy, Lily D 01/15/2025 10:15 AM CDT >Given IM LMD, tolerated well. [facility]# [id number]. Abilify Maintena 02/12/2025 400 mg Luna, Lily D 02/12/2025 10:15 AM CDT >Given IM Rt Gluteus, tolerated well. [facility]# [id number]. Abilify Maintena 03/12/2025 400 mg Luna, Lily D 03/12/2025 10:10 AM CDT >Given IM Lt Gluteus, tolerated well. [facility]# [id number]. Medical (General) History Medical History History ICD Code Bipolar 1 disorder Other specified hypothyroidism Seasonal allergic rhinitis, unspecified trigger Mixed hyperlipidemia PCOS COVID- 08/2020 Tobacco use disorder F17.200 Surgical History Surgery Date(Month/Year) wisdom teeth removal tonsillectomy lap band surgery lap band surgery removal gallbladder removal tubal ligation 3 C-sections Gastric Bypass Jul 2022 ovarian cyst removal 09/2023 Hospitalization History Reason Date(Month/Year) tubal ligation 3 C-Sections SI/depression 2017
--- OUTSIDE RECORDS SUMMARY | 2025-03-20 09:38 | XMS_ITS | Encounter Summary ---
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 Gender Identity Female 01/25/2021 11:10 AM CDT Sexual Orientation Straight 01/25/2021 11 :10 AM CDT documented as of this encounter Plan of Treatment Not on file documented as of this encounter Procedures Procedure Name Priority Date/Time Associated Diagnosis Comments SCAN - LABS 10/27/2021 documented in this encounter Results * SCAN - LABS (10/27/2021) us Provider Scanning Final Result documented in this encounter Visit Diagnoses Not on filedocumented in this encounter Additional Health Concerns Infection Onset Date Last Indicated Resolved Time COVID: Suspected 06/16/2024 06/16/2024 06/16/2024 8:32 AM GROUND MIXER documented as of this encounter Care Teams Machine Rough Rounder Relationship Specialty Start Date End Date Unknown, Notinfile PCP - General 07/21/20 11/15/21 Ruboi Burciaga MD [address] [place] [address] PCP - General Internal Medicine 11/16/21 documented as of this encounter
--- OUTSIDE RECORDS SUMMARY | 2025-03-20 09:38 | XMS_ITS | Encounter Summary ---
Author Organization [facility] Address [address] [place] [address] Phone Care Team Providers Care Sales And Marketing Manager Name Role Phone Unknown, Notinferendira Primary Care Provider Unavail able Rubio Burciaga MD Primary Care Provider [phone] Encounter Details Date Type Department Care Team (Latest Contact Info) Description 12/27/2020 Orders Only [facility] Scanning, Provider Social History Tobacco Use Types Packs/Day Years Used Date Smoking Tobacco: Never Assessed Comments Unknown Sex and Gender Information Value Date Recorded Sex Assigned at Not on file 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 Gender Identity Female 01/25/2021 11:10 AM CDT Sexual Orientation Straight 01/25/2021 11 :10 AM CDT documented as of this encounter Plan of Treatment Not on file documented as of this encounter Procedures Procedure Name Priority Date/Time Associated Diagnosis Comments SCAN - LABS 12/27/2020 documented in this encounter Results * SCAN - LABS (12/27/2020) us Provider Scanning Final Result documented in this encounter Visit Diagnoses Not on filedocumented in this encounter Additional Health Concerns Infection Onset Date Last Indicated Resolved Time COVID: Suspected 06/16/2024 06/16/2024 06/16/2024 8:32 AM FILTRATION PLANT OPERATOR documented as of this encounter Care Teams Sales And Marketing Manager Relationship Specialty Start Date End Date Unknown, Vivian PCP - General 07/21/20 11/15/21 Rubio Burciaga MD [address] [facility] [place] [id number] PCP - General Internal Medicine 11/16/21 documented as of this encounter
[2025-03-20 09:45] VITALS: PULSE 48; RESP 18; O2SAT 98
[2025-03-20] MEDS: PROPOFOL IV EMULSION 200 MG/20 ML VIAL IV PUSH (09:49)
[2025-03-20 09:50] VITALS: BP 122/84; PULSE 45; RESP 18; O2SAT 96
[2025-03-20 09:55] VITALS: BP 123/68; PULSE 49; RESP 14; O2SAT 99
--- NOTE | 2025-03-20 09:55 | ED.GENADULT ---
HPI - General Adult General Chief complaint: Extremity Injury, Upper <Anatoliy Bell MD - Last Filed: 03/20/25 17:42> Stated complaint: rt elbow deformity <Anatoliy Bell MD - Last Filed: 03/20/25 17:42> Source: patient <Sherry Helton PA-C - Last Filed: 03/20/25 13:36> Mode of arrival: EMS <Sherry Helton PA-C - Last Filed: 03/20/25 13:36> Limitations: no limitations <Sherry Helton PA-C - Last Filed: 03/20/25 13:36> History of Present Illness HPI narrative: Patient is a 40-year-old female who presents the ED via EMS with report of right elbow pain. Patient reports she tripped down her outside brick steps this morning and landed directly onto her R elbow. She did not hit her head or lose consciousness. C/o pain/swelling/deformity to R elbow. Denies numbness. Denies any other areas of pain. She is not on any anticoagulation. <Sherry Helton PA-C - Last Filed: 03/20/25 13:36> Related Data Home medications: Home Medications ?Medication ?Instructions ?Recorded ?Confirmed ?Last Taken ?Type cariprazine 3 mg capsule (Vraylar) 6 mg PO QPM 11/30/20 09/20/23 09/25/23 History levothyroxine 75 mcg tablet 125 mcg PO DAILY 11/30/20 09/20/23 09/26/23 History lithium carbonate 600 mg capsule 600 mg PO BID 11/30/20 09/20/23 09/26/23 History metformin 500 mg tablet,extended 500 mg PO HS 11/30/20 09/20/23 09/25/23 History release 24 hr pravastatin 20 mg tablet 20 mg PO DAILY 11/30/20 09/20/23 09/25/23 History Adults Multivitamin 1 tab-cap PO HS 09/20/23 09/20/23 09/23/23 History Allergy Relief (loratadine) 1 tab-cap PO DAILY 09/20/23 09/20/23 09/25/23 History atomoxetine 25 mg capsule 60 mg PO DAILY 09/20/23 09/20/23 09/25/23 History calcium citrate 1 tab-cap PO BID 09/20/23 09/20/23 09/23/23 History drospirenone 3 mg-estetrol 14.2 mg 1 tablet PO DAILY 09/20/23 09/20/23 09/26/23 History (28) tablet (Nextstellis) ferrous sulfate 325 mg (65 mg 325 mg PO QPM 09/20/23 09/26/23 09/22/23 History iron) tablet lithium carbonate 300 mg capsule 300 mg PO HS 09/20/23 09/20/23 09/25/23 History <Anatoliy Bell MD - Last Filed: 03/20/25 17:42> Allergies/adverse reactions: Allergies Allergy/AdvReac Type Severity Reaction Status Date / Time No Known Allergies Allergy Verified 03/20/25 09:18 <Anatoliy Bell MD - Last Filed: 03/20/25 17:42> Review of Systems Review of Systems: All systems reviewed & are unremarkable except as noted in HPI. <Sherry Helton PA-C - Last Filed: 03/20/25 13:36> All systems reviewed & are unremarkable except as noted in HPI and below <Sherry Helton PA-C - Last Filed: 03/20/25 13:36> [facility] Past Medical History Medical History: Medical History Anxiety PTSD (post-traumatic stress disorder) Bipolar disorder Hypothyroidism Asthma Hyperlipidemia <Anatoliy Bell MD - Last Filed: 03/20/25 17:42> Surgical History Surgical History: Surgical History History of tubal ligation History of History of cholecystectomy History of gastric bypass <Anatoliy Bell MD - Last Filed: 03/20/25 17:42> Social History Social History: Social History Smoking packs per day: 1 Smoking cigarettes per day: 20.0 Years smoked: 20 Smoking pack-years: 20.00 Smoking status: Former smoker Tobacco type: cigarettes Substance use type: marijuana Other substance usage details: daily in the evenings Spiritual care concerns: No <Anatoliy Bell MD - Last Filed: 03/20/25 17:42> Exam Narrative: GENERAL: Well appearing, morbidly obese with BMI of 41.2, non-toxic, in no acute distress. HEAD: Normocephalic, atraumatic. RESPIRATORY: Airway patent, respirations nonlabored. Clear to auscultation bilaterally, no rales, rhonchi, wheezing. CARDIOVASCULAR: Borderline bradycardic with regular rhythm without murmurs, rubs, or gallops. Radial pulses strong and easily palpable MUSCULOSKELETAL: Limited ROM of R elbow d/t pain. Deformity noted with anterior swelling along R proximal forearm. Diffuse tenderness throughout R elbow joint. Sensation intact SKIN: Warm, dry, normal color. NEURO: A&O X3. Speech clear. Cranial nerves II-XII grossly intact. Steady gait. No ataxic movements. PSYCHIATRIC: Appropriate mood and affect. Normal interaction. <Sherry Helton PA-C - Last Filed: 03/20/25 13:36> Course SONAR TECHNICIAN/PA Physician Supervision This visit was performed by both a physician and an APC. I performed all aspects of the MDM as documented. <Anatoliy Bell MD - Last Filed: 03/20/25 17:42> Vital Signs Vital signs: Vital Signs Temperature 98.6 F 03/20/25 09:09 Pulse Rate 49 L 03/20/25 09:09 Respiratory Rate 18 03/20/25 09:09 Blood Pressure 134/66 03/20/25 09:09 Pulse Oximetry 100 03/20/25 09:09 Oxygen Delivery Room Air 03/20/25 09:09 Temperature 98.6 F 03/20/25 09:09 Pulse Rate 58 L 03/20/25 10:25 Respiratory Rate 18 03/20/25 10:25 Blood Pressure 114/73 03/20/25 10:25 Pulse Oximetry 98 03/20/25 10:25 Oxygen Delivery Room Air 03/20/25 10:25 Oxygen Flow Rate 2 03/20/25 09:50 <Anatoliy Bell MD - Last Filed: 03/20/25 17:42> Vital Signs Temperature 98.6 F 03/20/25 09:09 Pulse Rate 49 L 03/20/25 09:09 Respiratory Rate 18 03/20/25 09:09 Blood Pressure 134/66 03/20/25 09:09 Pulse Oximetry 100 03/20/25 09:09 Oxygen Delivery Room Air 03/20/25 09:09 Temperature 98.6 F 03/20/25 09:09 Pulse Rate 58 L 03/20/25 10:25 Respiratory Rate 18 03/20/25 10:25 Blood Pressure 114/73 03/20/25 10:25 Pulse Oximetry 98 03/20/25 10:25 Oxygen Delivery Room Air 03/20/25 10:25 Oxygen Flow Rate 2 03/20/25 09:50 <Sherry Helton PA-C - Last Filed: 03/20/25 13:36> Procedures Orthopedic Joint Reduction Joint #1: Orthopedic Joint Reduction Date: 03/20/25 <Anatoliy Bell MD - Last Filed: 03/20/25 17:42> Orthopedic Joint Reduction Time: 09:56 <Anatoliy Bell MD - Last Filed: 03/20/25 17:42> Time Out Performed: Yes <Anatoliy Bell MD - Last Filed: 03/20/25 17:42> Side: right <Anatoliy Bell MD - Last Filed: 03/20/25 17:42> Joint Reduction Location: elbow <Anatoliy Bell MD - Last Filed: 03/20/25 17:42> Analgesia: procedural sedation <Anatoliy Bell MD - Last Filed: 03/20/25 17:42> Pre-Procedure Neuro Vascular Exam: normal <Anatoliy Bell MD - Last Filed: 03/20/25 17:42> Technique used: traction/counter-traction <Anatoliy Bell MD - Last Filed: 03/20/25 17:42> Post-reduction neuro exam: intact and no change <Anatoliy Bell MD - Last Filed: 03/20/25 17:42> Post-reduction vascular: intact and no change <Anatoliy Bell MD - Last Filed: 03/20/25 17:42> Post Reduction X-Ray Obtained: Yes <Anatoliy Bell MD - Last Filed: 03/20/25 17:42> Post Reduction X-Ray Results: reduced <Anatoliy Bell MD - Last Filed: 03/20/25 17:42> Splint Applied: Yes <Anatoliy Bell MD - Last Filed: 03/20/25 17:42> Patient Tolerated Procedure: well and no complications <Anatoliy Bell MD - Last Filed: 03/20/25 17:42> Orthopedic Splinting/Casting Injury #1: Splinting/Casting Date: 03/20/25 <Anatoliy Bell MD - Last Filed: 03/20/25 17:42> Splinting/Casting Time: 09:56 <Anatoliy Bell MD - Last Filed: 03/20/25 17:42> Side: right <Anatoliy Bell MD - Last Filed: 03/20/25 17:42> Upper Extremity Injury Location: elbow <Anatoliy Bell MD - Last Filed: 03/20/25 17:42> Upper Extremity Immobilizer: posterior splint (right sided long arm) <Anatoliy Bell MD - Last Filed: 03/20/25 17:42> Splint: customized in ED <Anatoliy Bell MD - Last Filed: 03/20/25 17:42> OCL: long arm <Anatoliy Bell MD - Last Filed: 03/20/25 17:42> Pre-Procedure Neuro Vascular Exam: normal <Anatoliy Bell MD - Last Filed: 03/20/25 17:42> Post-Procedure Neuro Vascular Exam: normal <Anatoliy Bell MD - Last Filed: 03/20/25 17:42> Procedural Sedation Procedural Sedation #1: Procedural Sedation Date: 03/20/25 <Anatoliy Bell MD - Last Filed: 03/20/25 17:42> Procedural Sedation Time: 09:52 <Anatoliy Bell MD - Last Filed: 03/20/25 17:42> Presedation Evaluation: APPEARANCE: Uncomfortable appearing HEAD: normocephalic, atraumatic. EYES: PERRLA/EOMI, conjunctivae clear. NOSE: Normal no drainage EARS:TMS clear with good light reflex. THROAT: Pharynx clear, no exudate. NECK: Supple. No adenopathy, no masses. RESPIRATORY: Airway patent, respirations nonlabored. Clear to auscultation bilaterally, no rales, rhonchi, wheezing. CARDIOVASCULAR: Regular rate and rhythm without murmurs rubs or gallops. ABDOMINAL: Soft, nontender, nondistended, normal bowel sounds MUSCULOSKELETAL: Right elbow deformity NEURO: Alert. Cranial nerves II through XII intact. Good gait. Good coordination SKIN: Warm, dry. Normal Color <Anatoliy Bell MD - Last Filed: 03/20/25 17:42> Time Out: Time-out was performed <Anatoliy Bell MD - Last Filed: 03/20/25 17:42> Informed Consent Obtained: yes <Anatoliy Bell MD - Last Filed: 03/20/25 17:42> Equipment in Room: bag and mask, capnography, teletypesetter monitor, crash cart, oxygen, pulse oximeter and suction <Anatoliy Bell MD - Last Filed: 03/20/25 17:42> Plan for Sedation: moderate sedation <Anatoliy Bell MD - Last Filed: 03/20/25 17:42> ASA Class: II <Anatoliy Bell MD - Last Filed: 03/20/25 17:42> Mallampati Classification: class I <Anatoliy Bell MD - Last Filed: 03/20/25 17:42> NPO Status: last solid food (hours ago) <Anatoliy Bell MD - Last Filed: 03/20/25 17:42> Explanation to Patient/Family: Risk/Benefits/Alternatives <Anatoliy Bell MD - Last Filed: 03/20/25 17:42> Pt. Educated on Procedural Sedation: Yes <Anatoliy Bell MD - Last Filed: 03/20/25 17:42> Re-evaluated immediately prior: Yes <Anatoliy Bell MD - Last Filed: 03/20/25 17:42> Preparation: teletypesetter monitor applied, pulse oximeter, capnometry used, supplemental O2 applied, reversal agents at bedside, suction/airway equipment at bedside and IV secured <Anatoliy Bell MD - Last Filed: 03/20/25 17:42> IV Propofol dose (mg): 100 (60 + 40) <Anatoliy Bell MD - Last Filed: 03/20/25 17:42> Patient Tolerated Procedure: well and no complications <Anatoliy Bell MD - Last Filed: 03/20/25 17:42> Complications: none <Anatoliy Bell MD - Last Filed: 03/20/25 17:42> Medical Decision Making MDM Narrative Medical decision making narrative: This visit was performed by both a physician and an APC. I performed all aspects of the MDM as documented. <Anatoliy Bell MD - Last Filed: 03/20/25 17:42> Patient presented to ED with right elbow pain status post mechanical fall down steps outside this morning. Deformity noted. Vital signs are stable upon arrival. Patient is neurovascularly intact. Good radial pulses. Discussed imaging findings with patient, need for elbow reduction. Will perform procedural sedation. This was performed by Dr. Anatoliy Bell using propofol. Patient tolerated procedure well. Elbow successfully reduced using direct manipulation. Patient placed in posterior long-arm splint. See procedure notes. Post reduction film: IMPRESSION: 1.Improved alignment of the supracondylar humerus. However, the supracondylar humerus is not in anatomic alignment 2.Redemonstration of the avulsion fractures about the right elbow. 3.Minimally displaced fracture of the radial neck. Discussed case with Dr. Nair, orthopedics, advised this constitutes terrible triad of elbow fx and will likely need surgical intervention. Recommended transfer to tertiary center for eval/repair. Discussed case with Dr. Mathews, orthopedics [facility], , safe for outpatient f/u, will call patient to make appointment. Recommended to obtain CT imaging of elbow today. Patient is in agreement with plan. Pain medications sent to pharmacy. Given sling for comfort and support. Discussed rice therapy. Discussed strict return precautions. Patient discharged in stable condition. --- This visit was performed by both a physician and an APC. I performed all aspects of the MDM as documented. <Sherry Helton PA-C - Last Filed: 03/20/25 13:36> Medical Records Medical records reviewed: Yes I reviewed the external patient's medical records. <Sehrry Helton PA-C - Last Filed: 03/20/25 13:36> Vital Signs Vital Signs: Vital Signs Temperature 98.6 F 03/20/25 09:09 Pulse Rate 49 L 03/20/25 09:09 Respiratory Rate 18 03/20/25 09:09 Blood Pressure 134/66 03/20/25 09:09 Pulse Oximetry 100 03/20/25 09:09 Oxygen Delivery Room Air 03/20/25 09:09 Temperature 98.6 F 03/20/25 09:09 Pulse Rate 58 L 03/20/25 10:25 Respiratory Rate 18 03/20/25 10:25 Blood Pressure 114/73 03/20/25 10:25 Pulse Oximetry 98 03/20/25 10:25 Oxygen Delivery Room Air 03/20/25 10:25 Oxygen Flow Rate 2 03/20/25 09:50 <Anatoliy Bell MD - Last Filed: 03/20/25 17:42> Vital Signs Temperature 98.6 F 03/20/25 09:09 Pulse Rate 49 L 03/20/25 09:09 Respiratory Rate 18 03/20/25 09:09 Blood Pressure 134/66 03/20/25 09:09 Pulse Oximetry 100 03/20/25 09:09 Oxygen Delivery Room Air 03/20/25 09:09 Temperature 98.6 F 03/20/25 09:09 Pulse Rate 58 L 03/20/25 10:25 Respiratory Rate 18 03/20/25 10:25 Blood Pressure 114/73 03/20/25 10:25 Pulse Oximetry 98 03/20/25 10:25 Oxygen Delivery Room Air 03/20/25 10:25 Oxygen Flow Rate 2 03/20/25 09:50 <Sherry Helton PA-C - Last Filed: 03/20/25 13:36> Imaging Data Attestation: I personally reviewed and interpreted this imaging study as follows: <SAWYER Morales Last Filed: 03/20/25 13:36> Radiologist's impression: ITS Impressions Elbow X-Ray 03/20/25 09:36 Impression: Fracture dislocation detailed above Elbow X-Ray 03/20/25 10:11 IMPRESSION: 1.Improved alignment of the supracondylar humerus. However, the supracondylar humerus is not in anatomic alignment 2.Redemonstration of the avulsion fractures about the right elbow. 3.Minimally displaced fracture of the radial neck. <SAWYER Morales Last Filed: 03/20/25 13:36> Discharge Plan Discharge Clinical Impression: Fracture dislocation of right elbow joint Qualifiers: Encounter type: initial encounter Fracture type: closed Qualified Code(s): S42.401A - Unspecified fracture of lower end of right humerus, initial encounter for closed fracture <Anatoliy Bell MD - Last Filed: 03/20/25 17:42> Patient Disposition: Home <Anatoliy Bell MD - Last Filed: 03/20/25 17:42> Condition: Stable <Anatoliy Bell MD - Last Filed: 03/20/25 17:42> Instructions: Antibiotic Form, Elbow Dislocation (ED), Elbow Fracture (ED), How to Use a Sling (ED), Splint Care (ED) <Anatoliy Bell MD - Last Filed: 03/20/25 17:42> Additional Instructions: Recommend Tylenol and ibuprofen around the clock as needed for pain. You may take 600 mg of ibuprofen and 1000 mg of Tylenol every 6 hours as needed. Oxycodone as needed for more severe pain. Keep arm elevated as much as possible, recommend frequent icing to elbow. Utilize sling for comfort and support. Follow-up with [facility] for further evaluation. They should be reaching out to you. If you do not hear from them by Sunday, call their office at: [phone] Return to the ED if you experience worsening or severe pain or swelling, recurrent injury, numbness, or any other symptoms of concern. <Anatoliy Bell MD - Last Filed: 03/20/25 17:42> Patient Language: Greek <Anatoliy Bell MD - Last Filed: 03/20/25 17:42> Prescriptions: New oxycodone 5 mg tablet 5 mg PO Q6H PRN (Reason: pain) Qty: 20 0RF No Action levothyroxine 75 mcg tablet 125 mcg PO DAILY lithium carbonate 600 mg capsule 600 mg PO BID pravastatin 20 mg tablet 20 mg PO DAILY metformin 500 mg tablet extended release 24 hr 500 mg PO HS Vraylar 3 mg capsule 6 mg PO QPM Adults Multivitamin 1 tab-cap PO HS Allergy Relief (loratadine) 1 tab-cap PO DAILY lithium carbonate 300 mg capsule 300 mg PO HS ferrous sulfate 325 mg (65 mg iron) tablet 325 mg PO QPM Nextstellis 3 mg- 14.2 mg (28) tablet 1 tablet PO DAILY calcium citrate 1 tab-cap PO BID atomoxetine 25 mg capsule 60 mg PO DAILY oxycodone-acetaminophen 5-325 mg tablet 1 tablet PO Q4H PRN (Reason: pain) Qty: 10 0RF <Anatoliy Bell MD - Last Filed: 03/20/25 17:42> Follow-up/Referrals: Rubio Burciaga MD [Primary Care Provider, Hospitalist] <Anatoliy Bell MD - Last Filed: 03/20/25 17:42> Time of Disposition: 13:25 <Anatoliy Bell MD - Last Filed: 03/20/25 17:42> 13:25 <Sherry Helton PA-C - Last Filed: 03/20/25 13:36>
[2025-03-20 10:10] VITALS: BP 111/56; PULSE 44; RESP 17; O2SAT 99
[2025-03-20] MEDS: SODIUM CHLORIDE 0.9% IV 1,000 ML 999 ML (10:10)
[2025-03-20] MEDS: KETOROLAC 30 MG/ML VIAL (*BKC) IV PUSH (10:20)
[2025-03-20 10:25] VITALS: BP 114/73; PULSE 58; RESP 18; O2SAT 98
--- NOTE | 2025-03-20 10:26 | PC.NURSE ---
0945: Time out performed, all equip in room, Dr. Bell and MARIO Powell at bedside 0949: 60 mg of propofol given by Dr. Bell 0950: 40 mg of propofol given by Dr. Bell 0952: Procedure complete
--- NOTE | 2025-03-20 13:53 | PC.NURSE ---
Pt asking for side effects if she were to go on ariplane this evening. ISAIAS Powell and Dr. Bell states they strongly do not recommend this but it is the patient decision. Pt made aware
== END 2025-03-20 14:01 | disposition home or self-care (01) ==
PROVIDERS: Emergency Provider Physician Assistant; PCP Internal Medicine
DX: S42.411A Displaced simple supracondylar fracture without intercondylar fracture of right humerus, initial encounter for closed fracture (principal); S52.131A Displaced fracture of neck of right radius, initial encounter for closed fracture; S52.121A Displaced fracture of head of right radius, initial encounter for closed fracture; E03.9 Hypothyroidism, unspecified; J45.909 Unspecified asthma, uncomplicated; E78.5 Hyperlipidemia, unspecified; F41.9 Anxiety disorder, unspecified; F43.10 Post-traumatic stress disorder, unspecified; F31.9 Bipolar disorder, unspecified; Z98.84 Bariatric surgery status; Z87.891 Personal history of nicotine dependence; Z90.49 Acquired absence of other specified parts of digestive tract; W10.8XXA Fall (on) (from) other stairs and steps, initial encounter
CPT/HCPCS: 24535; 73080; 73200; 96374; 96375; 96376; 99285; A4565; J1171; J1885; J2405; J2704; J7030